=== PATIENT | female | born 1955 | race Asian ===

== ENCOUNTER 2018-03-16 16:17 | Emergency (ER) | payer OTHER, MEDICAID, SELFPAY ==
[2018-03-16 16:25] VITALS: BP 98/64; PULSE 87; RESP 16; TEMP 36.6; O2SAT 98; BMI 23.4
--- NOTE | 2018-03-16 19:10 | DI.RAD.S_ITS ---
PROCEDURE: XR SHOULDER RT MIN 2V INDICATIONS: Pain to right shoulder for last 4 days no trauma TECHNIQUE: 3 views of the shoulder were acquired. COMPARISON: None. FINDINGS: Bones: No fractures or dislocations. No suspicious bony lesions. Degenerative changes are present at the insertion of the rotator cuff. Visualized ribs appear intact. Soft tissues: No suspicious soft tissue calcifications. IMPRESSION: Degenerative change. No acute radiographic findings. If pain persists, repeat study in 5-7 days is recommended to exclude occult fracture. Dictated by: Tracey Watts M.D. on 03/16/2018 at 19:35 Approved by: Tracey Watts M.D. on 03/16/2018 at 19:35
--- NOTE | 2018-03-16 19:38 | ED_ITS ---
HPI - Extremity Injury (Upper) <CONSTANTIN Mckeon - Last Filed: 03/16/18 21:57> General Chief Complaint: Extremity Injury, Upper Stated Complaint: right hand and arm pain Time Seen by Provider: 03/16/18 17:32 Source: patient Mode of arrival: ambulatory Limitations: no limitations History of Present Illness HPI narrative: 62-year-old female with history of hypertension that is an everyday smoker here for complaint of pain into her right shoulder and to her right arm for the past 4 days. She denies any trauma to the area. She does state that she has her grandkids has been picking them up over the past several days. She also reports that she gets pain to her right thumb. She reports increased pain with motion of the right shoulder. She denies any other concerns or complaints at this timeframe. MD complaint: injury to: right and shoulder Related Data Previous Rx's Medication Instructions Recorded atorvastatin 40 mg PO HS #90 tab 02/20/17 hydrochlorothiazide 25 mg tablet 25 mg PO QDAY #90 tab 10/25/17 lisinopril 5 mg tablet 5 mg PO QDAY #90 tab 10/25/17 levothyroxine 75 mcg tablet 75 mcg PO QDAY #90 tab 01/01/18 Allergies Allergy/AdvReac Type Severity Reaction Status Date / Time Penicillins [PENICILLINS] Allergy Intermediate RASH Unverified 03/16/18 16:31 lactose [LACTOSE] AdvReac Intermediate GI UPSET Unverified 03/16/18 16:31 Review of Systems <CONSTANTIN Mckeon - Last Filed: 03/16/18 21:57> Constitutional Denies chills, Denies fever(s), Denies lethargy and Denies weakness Eyes Denies change in vision, Denies eye discharge, Denies irritation and Denies loss of vision ENT Ears, Nose, Mouth, and Throat: Denies change in voice, Denies neck pain and Denies sore throat Cardiovascular Denies chest pain, Denies irregular heart rhythm, Denies lightheadedness, Denies palpitations, Denies dyspnea, Denies dyspnea on exertion and Denies orthopnea Respiratory Denies cough, Denies dyspnea, Denies dyspnea on exertion and Denies wheezing Gastrointestinal Gastrointestinal: Denies abdominal pain, Denies change in bowel habits, Denies diarrhea, Denies nausea and Denies vomiting Genitourinary Denies hematuria, Denies flank pain, Denies urinary incontinence and Denies urinary urgency Musculoskeletal Denies neck pain Comments: Right shoulder pain right thumb pain Integumentary/Breasts Denies pruritus, Denies erythema, Denies rash and Denies wounds Neurologic Denies loss of vision and Denies weakness Endocrine Denies palpitations Hematologic/Lymphatic Denies easy bruising Allergic/Immunologic Denies wheezing Exam <CONSTANTIN Mckeon - Last Filed: 03/16/18 21:57> Initial Vital Signs Initial Vital Signs: Vital Signs Temperature 97.9 F 03/16/18 16:25 Pulse Rate 87 03/16/18 16:25 Respiratory Rate 16 03/16/18 16:25 Blood Pressure 98/64 03/16/18 16:25 Pulse Oximetry 98 03/16/18 16:25 Const General: cooperative and well developed Nutritional Appearance: well nourished Orientation: alert, awake, oriented x3 and not confused HENMT Mouth: oral mucosae normal and moist mucous membranes Eyes Conjunctivae: conjunctivae normal Sclera: sclerae normal Pupils: PERRL EOM: EOM intact bilaterally Resp Effort & Inspection: normal respiratory effort, able to speak in complete sentences, no respiratory distress and no use of accessory muscles Auscultation: clear to auscultation bilaterally, no rales, no rhonchi and no wheezes Cardio Rate: regular rate Rhythm: regular rhythm Heart Sounds: no click, no gallops, no murmurs and no rubs Pulses: normal peripheral pulses Skin General: no rashes or lesions noted, No jaundice and No petechiae Neuro General: alert, oriented x3, gait normal and no focal motor deficits Speech: speech normal Extrem Other: Right arm with no signs of trauma. Right shoulder no swelling no ecchymosis. Right thumb with no swelling no ecchymosis. Distal sensation is intact. Distal pulses are intact. Patient with full range of motion of the right arm. <Thony Hilton DO - Last Filed: 03/16/18 23:24> Initial Vital Signs Initial Vital Signs: Vital Signs Temperature 97.9 F 03/16/18 16:25 Pulse Rate 87 03/16/18 16:25 Respiratory Rate 16 03/16/18 16:25 Blood Pressure 98/64 03/16/18 16:25 Pulse Oximetry 98 03/16/18 16:25 Course <CONSTANTIN Mckeon - Last Filed: 03/16/18 21:57> Orders Ordered: ED Orders 03/16/18 19:10 XR shoulder RT min 2V Stat Vital Signs - 8 hr 03/16/18 16:25 03/16/18 19:56 Temperature 97.9 F Pulse Rate 87 69 Respiratory Rate 16 14 Blood Pressure 98/64 Blood Pressure [Left Arm] 111/63 Pulse Oximetry 98 98 <Thony Hilton DO - Last Filed: 03/16/18 23:24> Orders Ordered: ED Orders 03/16/18 19:10 XR shoulder RT min 2V Stat Vital Signs - 8 hr 03/16/18 16:25 03/16/18 19:56 Temperature 97.9 F Pulse Rate 87 69 Respiratory Rate 16 14 Blood Pressure 98/64 Blood Pressure [Left Arm] 111/63 Pulse Oximetry 98 98 MDM - Extremity Injury (Upper) <CONSTANTIN Mckeon - Last Filed: 03/16/18 21:57> Imaging Data Right shoulder : Radiologist's impression: [place] [address] XRay Report Signed Patient: Bala Alan MR#: [id number] : 1955 Acct:[id number] Age/Sex: 62 / F Date of Service: 03/16/18 Loc: ED Accession Number: [id number] Procedure: XR shoulder RT min 2V Ordering Provider: Lex Leggett PROCEDURE: XR SHOULDER RT MIN 2V INDICATIONS: Pain to right shoulder for last 4 days no trauma TECHNIQUE: 3 views of the shoulder were acquired. COMPARISON: None. FINDINGS: Bones: No fractures or dislocations. No suspicious bony lesions. Degenerative changes are present at the insertion of the rotator cuff. Visualized ribs appear intact. Soft tissues: No suspicious soft tissue calcifications. IMPRESSION: Degenerative change. No acute radiographic findings. If pain persists, repeat study in 5-7 days is recommended to exclude occult fracture. Dictated by: Tracey Watts M.D. on 03/16/2018 at 19:35 Approved by: Tracey Watts M.D. on 03/16/2018 at 19:35 [facility] Narrative Medical decision making narrative: X-ray of the right shoulder was obtained was negative for any acute findings. Signs symptoms presents as a strain into the right shoulder and right thumb area. [id number] Tylenol or Motrin as needed for any discomfort. Follow up with primary care provider later this week for re-evaluation. For any worsening symptoms return emergency room. Discharge Plan Departure Patient Disposition: Home Clinical Impression: Right shoulder strain Discharge Date/Time: 03/16/18 20:14 Interventions: ED Discharge Assessment Last Done: 03/16/18 20:13 Instructions: DI for Shoulder Pain Activity Restrictions/Additional Instructions: X-ray of the right shoulder was obtained was negative for any acute findings. Signs symptoms presents as a strain into the right shoulder and right thumb area. [id number] Tylenol or Motrin as needed for any discomfort. Follow up with primary care provider later this week for re-evaluation. For any worsening symptoms return emergency room. Prescriptions: No Action atorvastatin 40 MG tablet 40 mg PO HS Qty: 90 RF: 1 lisinopril 5 mg tablet 5 mg PO QDAY Qty: 90 RF: 1 hydrochlorothiazide 25 mg tablet 25 mg PO QDAY Qty: 90 RF: 1 levothyroxine [Synthroid] 75 mcg tablet 75 mcg PO QDAY Qty: 90 RF: 0 Referrals: Martha Barrios PA-C [Primary Care Provider] - <Thony Hilton DO - Last Filed: 03/16/18 23:24> Cosign ED Attending Sheree Attestation: I was immediately available in the department for consultation. Documentation has been reviewed. I agree with assessment and plan.
[2018-03-16 19:56] VITALS: BP 111/63; PULSE 69; RESP 14; O2SAT 98
== END 2018-03-16 20:14 | disposition home or self-care (01) ==
PROVIDERS: Emergency Provider Nurse Practitioner Family; Family Provider Physician Assistant; PCP Physician Assistant
DX: S46.911A Strain of unspecified muscle, fascia and tendon at shoulder and upper arm level, right arm, initial encounter (principal); T73.3XXA Exhaustion due to excessive exertion, initial encounter
CPT/HCPCS: 29125; 29260; 73030; 99283

== ENCOUNTER → 2018-04-06 13:39 | Outpatient (CLI) | payer OTHER, MEDICAID, SELFPAY ==
--- NOTE | 2018-04-06 13:42 | DI.RAD.S_ITS ---
PROCEDURE: XR CHEST 2V INDICATIONS: 62 y/o F smoker w/ cough x 1 month posterior R chest pain TECHNIQUE: 2 views of the chest were acquired. COMPARISON: 02/06/2011. FINDINGS: Surgical changes and devices: None. Metallic, radiopaque foreign body projects over the chin on the AP view and is outside the patient's body on the lateral view. This is artifactual. Lungs and pleura: No pleural effusions or pneumothorax. Lungs are clear. Mediastinum: Mediastinal contours are normal. Heart size is normal. Atherosclerotic calcifications of the aortic arch are present. Bones and chest wall: No suspicious bony abnormalities. Soft tissues appear unremarkable. IMPRESSION: Chest without acute cardiopulmonary abnormalities. Dictated by: You Drew M.D. on 04/06/2018 at 15:44 Approved by: You Drew M.D. on 04/06/2018 at 15:46
== END ==
PROVIDERS: Family Provider Physician Assistant; PCP Physician Assistant; Visit Provider Physician Assistant
DX: R05 Cough (principal); R07.9 Chest pain, unspecified; F17.200 Nicotine dependence, unspecified, uncomplicated
CPT/HCPCS: 71046

== ENCOUNTER → 2018-07-12 12:10 | Outpatient (CLI) | payer OTHER, MEDICAID, SELFPAY ==
--- NOTE | 2018-07-12 12:12 | DI.RAD.S_ITS ---
PROCEDURE: XR CHEST 2V INDICATIONS: Productive cough x3 weeks without improvement TECHNIQUE: 2 views of the chest were acquired. COMPARISON: [facility], CR, XR CHEST 2V, 04/06/2018, 14:19. FINDINGS: Surgical changes and devices: None. Lungs and pleura: No acute consolidation. Scattered subsegmental atelectasis and/or scarring. 9 mm ill-defined nodular opacity projecting in the left lung base. No pleural effusions or pneumothorax. Mediastinum: Mediastinal contours are normal. Heart size is normal. Bones and chest wall: No suspicious bony abnormalities. Soft tissues appear unremarkable. IMPRESSION: Subcentimeter ill-defined nodular opacity projecting in the left lung base potentially a small focus of bronchopneumonia however cannot exclude malignant/metastatic pulmonary nodule. Recommend followup with one-month interval chest radiograph after treatment and if this persists, further assessment with dedicated noncontrast chest CT. Dictated by: Manan Cadet M.D. on 07/12/2018 at 12:27 Approved by: Manan Cadet M.D. on 07/12/2018 at 12:31
== END ==
PROVIDERS: Family Provider Physician Assistant; PCP Physician Assistant; Visit Provider Registered Nurse
DX: R05 Cough (principal); R91.1 Solitary pulmonary nodule
CPT/HCPCS: 71046

== ENCOUNTER → 2018-08-02 09:40 | Outpatient (CLI) | payer OTHER, MEDICAID, SELFPAY ==
--- NOTE | 2018-08-02 09:43 | DI.RAD.S_ITS ---
PROCEDURE: XR CHEST 2V INDICATIONS: Test for cure of pneumonia TECHNIQUE: 2 views of the chest were acquired. COMPARISON: [facility], CR, XR CHEST 2V, 07/12/2018, 12:13. FINDINGS: Surgical changes and devices: None. Lungs and pleura: A similar irregular parenchymal opacity is present projecting adjacent to the left cardiac margin, likely in the lingula. No other consolidations or pleural effusions. Mediastinum: Mediastinal contours are normal. Heart size is normal. Bones and chest wall: No suspicious bony abnormalities. Soft tissues appear unremarkable. IMPRESSION: Irregular opacity in the lingula. Given adequate treatment of an infectious process, noncontrast chest CT for further evaluation of this lesion is recommended. Dictated by: Tammy Mendez M.D. on 08/02/2018 at 11:10 Approved by: Tammy Mendez M.D. on 08/02/2018 at 11:13
== END ==
PROVIDERS: Family Provider Physician Assistant; PCP Physician Assistant; Visit Provider Nurse Practitioner
DX: J18.9 Pneumonia, unspecified organism (principal); R06.2 Wheezing
CPT/HCPCS: 71046

== ENCOUNTER → 2018-08-09 10:17 | Outpatient (CLI) | payer OTHER, MEDICAID, SELFPAY ==
--- NOTE | 2018-08-09 11:04 | DI.CT.S_ITS ---
PROCEDURE: CT CHEST WO CON INDICATIONS: X-ray findings of questionable lung mass TECHNIQUE: Noncontrast 2.0-2.5 mm thick sections acquired from the pulmonary apices to the posterior costophrenic angles. 7 mm thick coronal and sagittal MIP reformats were then acquired. A low radiation dose technique was utilized. COMPARISON: [facility], CT, THORAX WITHOUT CONTRAST, 02/15/2011, 11:44. [facility], CR, CHEST 2 VIEW, 01/19/2011, 8:40. [facility], CR, CHEST 2 VIEW, 02/06/2011, 11:31. [facility], CR, XR CHEST 2V, 04/06/2018, 14:19. [facility], CR, XR CHEST 2V, 07/12/2018, 12:13. [facility], CR, XR CHEST 2V, 08/02/2018, 9:48. FINDINGS: Image quality: Diagnostic, given the low radiation dose technique. Lungs and pleura: The there has been a pattern of chronic lingular segment airspace disease in this patient with reference to prior plain film imaging from January 2011, and also with subsequent chest CT scanning 02/15/11 showing focal likely chronic lung disease at the lingular segment left upper lobe anteriorly. This same area has shown more recent airspace disease, and the current CT scanning shows a similar pattern to that previously present in February of 2011. A mass lesion or abnormal fluid collection has not developed. Mediastinum: Heart size is normal. No pericardial effusion. No mediastinal adenopathy by size criteria. Thoracic aorta and central pulmonary arteries are normal in size. Esophagus is normal in caliber. No hiatal hernia. Bones and chest wall: No suspicious bony lesions. No vertebral body compression fractures. No axillary or supraclavicular adenopathy by size criteria. Thyroid gland appears normal. Abdomen: Visualized upper abdomen solid organs and bowel loops appear normal in the absence of contrast. IMPRESSION: Patchy alveolar airspace disease involving the lingular segment left upper lobe with only a slight degree of progression with reference to the prior CT scanning from February of 2011. Appearance is most consistent with chronic lung disease, possibly chronic recurrent infection in that area, but no underlying mass lesion is seen. [employer] consultation likely is warranted, bronchial lavage to determine whether chronic low grade infection/granulomatous disease could be present in that area. Dictated by: Alexandro Matias M.D. on 08/09/2018 at 12:43 Approved by: Alexandro Matias M.D. on 08/09/2018 at 12:59
== END ==
PROVIDERS: Family Provider Physician Assistant; PCP Physician Assistant; Visit Provider Nurse Practitioner
DX: J98.4 Other disorders of lung (principal); R93.89 Abnormal findings on diagnostic imaging of other specified body structures
CPT/HCPCS: 71250

== ENCOUNTER → 2019-01-10 11:53 | Outpatient (CLI) | payer OTHER, MEDICAID, SELFPAY ==
[2019-01-13 10:59] LABS: Fecal Immunochemical Test NOT DETECTED (NOT DETECTED)
== END ==
PROVIDERS: PCP Physician Assistant; Visit Provider Physician Assistant
DX: Z12.11 Encounter for screening for malignant neoplasm of colon (principal)
CPT/HCPCS: 82274

== ENCOUNTER → 2019-03-07 10:33 | Outpatient (CLI) | payer OTHER, MEDICAID, SELFPAY ==
--- NOTE | 2019-03-17 08:34 | PM.PFT.1 ---
Pulmonary Function Test Referral & Results Date Patient Seen: 03/07/19 Requesting provider: Martha Barrios Results: The spirometry demonstrates an FVC of 2.37 L which is 84% of predicted. The FEV1 was measured at 1.35 L which is 62% of predicted. The FEV1/FVC ratio was 57 which is 73% of predicted. Following the administration of bronchodilator there was a 36% improvement in FEF 25-75%. Lung volumes show an SVC of 2.31 L which is 87% of predicted. The diffusing capacity was measured at 11.33 which is 60% of predicted. No hemoglobin value was provided, so no correction for potential anemia could be made, if appropriate. The maximum voluntary ventilation was severely reduced Interpretation: This study demonstrates moderate obstructive lung disease based on reduction FEV1 with limited evidence of benefit following bronchodilator which is most prominently seen in small airway flow based on improvement in FEF 25-75% as above There is minimal reduction in lung volumes suggesting minimal restrictive lung disease There is a more significant reduction in diffusing capacity suggesting moderate disease of the capillary alveolar level
== END ==
PROVIDERS: PCP Physician Assistant; Visit Provider Physician Assistant
DX: J98.8 Other specified respiratory disorders (principal); R05 Cough; F17.200 Nicotine dependence, unspecified, uncomplicated; Z87.891 Personal history of nicotine dependence
CPT/HCPCS: 94060; 94726; 94729

== ENCOUNTER → 2019-04-22 11:29 | Outpatient (CLI) | payer OTHER, MEDICAID, SELFPAY ==
--- NOTE | 2019-04-22 | DI.RAD.S_ITS ---
PROCEDURE: XR FOOT LT MIN 3V INDICATIONS: LEFT FOOT PAIN TECHNIQUE: 3 views of the foot were acquired. COMPARISON: None. FINDINGS: Bones: No fractures or dislocations. Possible subcortical lucency involving the head of the left great toe proximal phalanx. This may be related to artifact as it is only seen in one view. Otherwise, no other suspicious bony lesions. Small plantar calcaneal and retrocalcaneal enthesophyte. Soft tissues: No tibiotalar joint effusion. Achilles tendon appears normal. IMPRESSION: 1. Small plantar calcaneal and retrocalcaneal enthesophyte. 2. Possible small subcortical lucency involving the head of the left great toe proximal phalanx. This is only seen on one view and may be artifactual in etiology. Dictated by: You Drew M.D. on 04/22/2019 at 16:31 Approved by: You Drew M.D. on 04/22/2019 at 16:34
== END ==
PROVIDERS: PCP Physician Assistant; Referring Provider Physician Assistant; Visit Provider Physician Assistant
DX: M79.672 Pain in left foot (principal); M77.32 Calcaneal spur, left foot
CPT/HCPCS: 73630

== ENCOUNTER 2019-05-26 15:59 | Emergency (ER) | payer OTHER, MEDICAID, SELFPAY ==
[2019-05-26 16:09] VITALS: BP 115/68; PULSE 79; RESP 18; TEMP 37.2; O2SAT 98; BMI 24.4
--- NOTE | 2019-05-26 16:18 | DI.RAD.S_ITS ---
PROCEDURE: XR CHEST 2V INDICATIONS: cough/SOB TECHNIQUE: 2 views of the chest were acquired. COMPARISON: [facility], CR, XR CHEST 2V, 08/02/2018, 9:48. [facility], CR, XR CHEST 2V, 07/12/2018, 12:13. FINDINGS: Surgical changes and devices: None. Lungs and pleura: Lungs are clear. No pleural effusions or pneumothorax. Mediastinum: Mediastinal contours are normal. Heart size is normal. Bones and chest wall: No suspicious bony abnormalities. Soft tissues appear unremarkable. IMPRESSION: Relatively large lung volumes which may simply reflect an aggressive inspiratory effort. No pneumonia found. Dictated by: Alexandro Matias M.D. on 05/26/2019 at 16:51 Approved by: Alexandro Matias M.D. on 05/26/2019 at 16:52
[2019-05-26 16:54] LABS: Influenza A - CEPHEID Flu A NEGATIVE (NEGATIVE); Influenza B - CEPHEID Flu B NEGATIVE (NEGATIVE)
--- NOTE | 2019-05-26 18:58 | ED_ITS ---
HPI - URI/Sore Throat <CONSTANTIN Chakraborty - Last Filed: 05/26/19 21:02> General Chief Complaint: Upper Respiratory Symptoms Stated Complaint: Cough/SOB/No Fever Time Seen by Provider: 05/26/19 17:56 Mode of arrival: Ambulatory History of Present Illness HPI Narrative: 64-year-old female with a history of chronic emphysema presents to the emergency department for continued cough over the past 2 months. She states she has been taking Tessalon Perles which has helped foot is interested in trying an inhaler to help with symptoms. She states her cough is dry, she denies any worsening symptoms such as fever, shortness of breath, chest pain, nausea, vomiting, diarrhea, or any other concerns. She denies any exposure to persons with COVID-19 infection Related Data Previous Rx's Medication Instructions Recorded levothyroxine 88 mcg tablet 88 mcg PO DAILY #90 tab 07/15/18 hydrochlorothiazide 25 mg tablet 25 mg PO QDAY #90 tab 12/27/18 varenicline 0.5 mg (11)-1 mg (42) See Rx Instructions PO PER PKG DIR 01/01/19 tablets in a dose pack #53 each atorvastatin 40 mg tablet 40 mg PO HS #90 tab 04/22/19 azithromycin 250 mg tablet See Rx Instructions PO .COMPLEX #6 04/22/19 tab codeine 10 mg-guaifenesin 200 mg/5 5 ml PO BEDTIME #200 ml 04/22/19 mL oral liquid hydroxyzine pamoate 25 mg capsule See Rx Instructions PO BEDTIME PRN 04/22/19 #60 cap lisinopril 5 mg tablet 5 mg PO QDAY #90 tab 04/22/19 varenicline 0.5 mg tablet 1 mg PO BID #60 tab 04/22/19 albuterol sulfate 2 puff INHALATION Q4-6H PRN #8.5 05/26/19 gram benzonatate [Tessalon Perles] 100 mg PO BID-TID PRN #20 cap 05/26/19 Allergies Allergy/AdvReac Type Severity Reaction Status Date / Time Penicillins [PENICILLINS] Allergy Intermediate RASH Verified 05/26/19 16:13 lactose [LACTOSE] AdvReac Intermediate GI UPSET Verified 05/26/19 16:13 Review of Systems <CONSTANTIN Chakraborty - Last Filed: 05/26/19 21:02> Review of Systems Narrative: REVIEW OF SYSTEMS: GENERAL: Denies fevers. HENT: No head trauma or hearing loss. EYES: No loss of vision, double vision, eye pain, irritation or discharge. CARDIOVASCULAR: No chest pain or syncope. RESPIRATORY: No shortness of breath. Reports cough, see HPI. GASTROINTESTINAL: No nausea, vomiting, diarrhea, or constipation. MUSCULOSKELETAL: No weakness or injury. INTEGUMENTARY: No rash, lesions, or pruritus. NEURO: No memory loss, or confusion. Patient History <CONSTANTIN Chakraborty - Last Filed: 05/26/19 21:02> Medical History Depression (Chronic Unknown) GERD (gastroesophageal reflux disease) (Chronic ~2011) Hyperlipemia (Chronic Unknown) Hypertension (Chronic Unknown) Hypothyroidism (Chronic Unknown) Surgical History Hx of breast surgery (Resolved Unknown) Social History Smoking Status: Current every day smoker Tobacco: How many years used: 35 second hand exposure: Yes alcohol intake: never substance use type: does not use Smoking Status: Current every day smoker alcohol intake frequency: holidays/special occasions only Substance Use Type: does not use Exam <CONSTANTIN Chakraborty - Last Filed: 05/26/19 21:02> Initial Vital Signs Initial Vital Signs: Vital Signs Temperature 99.0 F 05/26/19 16:09 Pulse Rate 79 05/26/19 16:09 Respiratory Rate 18 05/26/19 16:09 Blood Pressure 115/68 05/26/19 16:09 Pulse Oximetry 98 05/26/19 16:09 PHYSICAL EXAMINATION: GENERAL: Well groomed, alert, and cooperative. Answers questions promptly and appropriately. Vital signs noted. HENT: Normocephalic, atraumatic. Ear canals patent. Oropharynx without erythema. Tonsils are not present. EYES: Conjunctiva pink, sclera white, no periorbital swelling. No discharge. CHEST: Normal to inspection and without deformities. CARDIOVASCULAR: S1 and S2 sounds normal. Regular rate and rhythm, no murmurs, clicks, or bruits. RESPIRATORY: Normal respiratory rate, trachea midline, airway patent. No s tridor, nasal flaring or accessory muscle use. Able to speak in full sentences. Lungs occasional expiratory wheeze heard, no crackles or rhonchi. Dry cough heard throughout examination. MUSCULOSKELETAL: Normal gait and coordination. Equal tone and mass bilaterally. EXTREMITIES: Moves all extremities. SKIN: Warm, dry, soft, appropriate color for ethnicity. No lesions, rashes, or wounds to visualized areas. NEURO: Alert and Oriented X 3. Good coordination. No ataxia or cognitive issues. PSYCH: Appropriate affect and mood. <Todd Christian DO - Last Filed: 05/26/19 23:20> Initial Vital Signs Initial Vital Signs: Vital Signs Temperature 99.0 F 05/26/19 16:09 Pulse Rate 79 05/26/19 16:09 Respiratory Rate 18 05/26/19 16:09 Blood Pressure 115/68 05/26/19 16:09 Pulse Oximetry 98 05/26/19 16:09 Course <CONSTANTIN Chakraborty - Last Filed: 05/26/19 21:02> Course Course Narrative: Respiratory was called to teach patient had to use a spacer. Orders Ordered: ED Orders 05/26/19 16:15 Influenza A & B (PCR) Stat 05/26/19 16:18 Chest [XR chest 2V] Stat Vital Signs Vital signs: Vital Signs - 8 hr 05/26/19 16:09 Temperature 99.0 F Pulse Rate 79 Respiratory Rate 18 Blood Pressure 115/68 Pulse Oximetry 98 <Todd Christian DO - Last Filed: 05/26/19 23:20> Orders Ordered: ED Orders 05/26/19 16:15 Influenza A & B (PCR) Stat 05/26/19 16:18 Chest [XR chest 2V] Stat Vital Signs Vital signs: Vital Signs - 8 hr 05/26/19 16:09 Temperature 99.0 F Pulse Rate 79 Respiratory Rate 18 Blood Pressure 115/68 Pulse Oximetry 98 MDM - URI/Sore Throat <CONSTANTIN Chakraborty - Last Filed: 05/26/19 21:02> Medical Records Attestation: I reviewed the patient's medical records. Lab Data Attestation: I reviewed the patient's lab results. Labs: Lab Results 05/26/19 Range/Units 16:15 Influenza A (RT-PCR) Flu a negative (NEGATIVE) Influenza B (RT-PCR) Flu b negative (NEGATIVE) Imaging Data Chest x-ray: Radiologist's Impression: [address] [place] [id number] XRay Report Signed Patient: Bala Alan#: [id number] : 8Acct:[id number] Age/Sex: 64 / FDate of Service: 05/26/19 Loc: ED Accession Number: [id number] Procedure: XR chest 2V Ordering Provider: Natasha Lundberg MD PROCEDURE: XR CHEST 2V INDICATIONS: cough/SOB TECHNIQUE: 2 views of the chest were acquired. COMPARISON: [facility], CR, XR CHEST 2V, 08/02/2018, 9:48. [facility], CR, XR CHEST 2V, 07/12/2018, 12:13. FINDINGS: Surgical changes and devices: None. Lungs and pleura: Lungs are clear. No pleural effusions or pneumothorax. Mediastinum: Mediastinal contours are normal. Heart size is normal. Bones and chest wall: No suspicious bony abnormalities. Soft tissues appear unremarkable. IMPRESSION: Relatively large lung volumes which may simply reflect an aggressive inspiratory effort. No pneumonia found. Dictated by: Alexandro Matias M.D. on 05/26/2019 at 16:51 Approved by: Alexandro Matias M.D. on 05/26/2019 at 16:52 MDM Narrative Medical decision making narrative: 64-year-old female presents emergency department for continued cough for the past 2 months. Chest x-rays negative for any infectious signs such as pneumonia, influenza swab is negative. Is most likely caused by chronic emphysema as she states she has this cough is very similar to her chronic emphysema cough. She states is usually controlled by Tessalon Perles but would like to try an inhaler to see if her cough full resolved. Patient's temp was slightly elevated but does not complain of fevers at home I do not feel that she needs to be tested for COVID-19 at this time due to lack of other symptoms. Less concerns for other etiologies such as cardiac or pulmonary etiology due to lack of symptoms such as chest pain and shortness of breath. Patient was given strict ED return precautions for new or worsening symptoms she. Patient was encouraged to follow up with her primary care provider in 2 weeks for further evaluation and management of her chronic of his e-mail. She agrees to plan of care verbalized understanding. <Todd Christian, DO - Last Filed: 05/26/19 23:20> Lab Data Labs: Lab Results 05/26/19 Range/Units 16:15 Influenza A (RT-PCR) Flu a negative (NEGATIVE) Influenza B (RT-PCR) Flu b negative (NEGATIVE) Discharge Plan Departure Patient Disposition: Home Clinical Impression: Chronic emphysema syndrome Discharge Date/Time: 05/26/19 19:23 Instructions: DI for Cough-Child Activity Restrictions/Additional Instructions: Thank you for entrusting me with your care today. As discussed, your chest x- rays negative, you are also negative for influenza. Due to your chronic emphysema that has not improved, I have prescribed you an inhaler. This inhaler can make you shaking, dizzy, and jittery after you take it. Please use it with a spacer. You can use 2 puffs every 4-6 hours as needed for extensive coughing and shortness of breath. Please rinse your mouth out after using her inhaler. I have also prescribed you Tessalon Perles. Follow up with her primary care provider in 1-2 weeks for further evaluation. Return emergency department for any new or worsening symptoms such as significant shortness of breath, chest pain, syncope, or any other concerns. Prescriptions were sent to [facility] pharmacy in [place]. Prescriptions: New albuterol sulfate 90 mcg/actuation HFA aerosol inhaler 2 puff INHALATION Q4-6H PRN (Reason: shortness of breath or wheezing) Qty: 8.5 RF: 0 benzonatate [Tessalon Perles] 100 mg capsule 100 mg PO BID-TID PRN (Reason: cough) Qty: 20 RF: 0 No Action levothyroxine 88 mcg tablet 88 mcg PO DAILY Qty: 90 RF: 3 hydrochlorothiazide 25 mg tablet 25 mg PO QDAY Qty: 90 RF: 1 varenicline 0.5 mg (11)- 1 mg (42) tablets,dose pack See Rx Instructions PO PER PKG DIR Qty: 53 RF: 0 hydroxyzine pamoate 25 mg capsule See Rx Instructions PO BEDTIME PRN (Reason: inomnia and anxiety) Qty: 60 RF: 3 varenicline 0.5 mg tablet 1 mg PO BID Qty: 60 RF: 6 atorvastatin 40 mg tablet 40 mg PO HS Qty: 90 RF: 1 lisinopril 5 mg tablet 5 mg PO QDAY Qty: 90 RF: 1 codeine-guaifenesin 10-200 mg/5 mL liquid 5 ml PO BEDTIME Qty: 200 RF: 0 azithromycin 250 mg tablet See Rx Instructions PO .COMPLEX Qty: 6 RF: 0 Referrals: Martha Barrios PA-C [Primary Care Provider] - <Todd Christian DO - Last Filed: 05/26/19 23:20> Sign Out Provider Sign Out Attestation: Dr Christian Co-Sign Statement: I was available for consultation during this patient's emergency department visit. This chart is signed by myself for administrative purposes only. I did not have direct contact with this patient during this visit. They were seen independently by the APC.
== END 2019-05-26 19:23 | disposition home or self-care (01) ==
PROVIDERS: Emergency Medicine; Emergency Provider Nurse Practitioner; PCP Physician Assistant
DX: J43.8 Other emphysema (principal); Z72.0 Tobacco use
CPT/HCPCS: 71046; 87502; 99283

== ENCOUNTER → 2019-10-16 16:08 | Outpatient (CLI) | payer OTHER, MEDICAID, SELFPAY ==
--- NOTE | 2019-10-16 16:10 | DI.RAD.S_ITS ---
PROCEDURE: XR SHOULDER RT MIN 2V INDICATIONS: right shoulder pain TECHNIQUE: 3 views of the shoulder were acquired. COMPARISON: [facility], CR, XR SHOULDER RT MIN 2V, 03/16/2018, 19:15. FINDINGS: Bones: No fractures or dislocations. No suspicious bony lesions. Visualized ribs appear intact. Mild joint narrowing with periarticular osteophyte formation. Prominent spurring again visualized at the insertion site of the rotator cuff. Soft tissues: No suspicious soft tissue calcifications. IMPRESSION: 1. Mild acromioclavicular and glenohumeral joint degeneration. 2. Prominent bone spurring again seen at the insertion site of the rotator cuff. Dictated by: Brett Torres [facility] Interpreted: Benjamin Maldonado MD on 10/16/2019 at 16:36 Approved by: Benjamin Maldonado M.D. on 10/16/2019 at 17:08
== END ==
PROVIDERS: PCP Nurse Practitioner Family; Referring Provider Nurse Practitioner Family; Visit Provider Nurse Practitioner Family
DX: M19.011 Primary osteoarthritis, right shoulder (principal); M25.511 Pain in right shoulder
CPT/HCPCS: 73030

== ENCOUNTER → 2019-12-09 10:54 | Outpatient (CLI) | payer OTHER, MEDICAID, SELFPAY ==
[2019-12-09 11:25] LABS: Hematocrit 42.4 % (36-46); Mean Corpuscular Hemoglobin 31.8 PG (26-34); Mean Corpuscular Volume 96.4 fL (80-100); Platelet Count 165 X10^3/uL (150-400); Red Cell Distribution Width 13.2 % (11.6-14.8); White Blood Cell Count 5.2 X10^3/uL (4.5-11.0)
[2019-12-09 13:21] LABS: Alanine Aminotransferase 16 IU/L (<35); Albumin 4.2 g/dL (3.5-5.0); Albumin Globulin Ratio 1.3 (1.0-2.8); Alkaline Phosphatase 87 U/L (38-126); Aspartate Aminotransferase 25 IU/L (14-36); BUN Creatinine Ratio 24.1 (6-22); Bilirubin Total 0.6 mg/dL (0.2-1.3); Blood Urea Nitrogen 20 mg/dL (7-17); Calcium 9.6 mg/dL (8.4-10.2); Carbon Dioxide 31 mmol/L (22-32); Chloride 106 mmol/L (98-107); Cholesterol 254 mg/dL (140-199); Estimated Glomerular Filt Rate > 60.0 mL/min (>60); Globulin 3.2 g/dL (1.7-4.1); Glucose 96 mg/dL (80-110); HDL Cholesterol 45 mg/dL (40-60); HEMOLYSIS < 15 (0-50); LDL Cholesterol Calculated 168 mg/dL (<100); Potassium 5.1 mmol/L (3.4-5.1); Sodium 141 mmol/L (137-145); Total Protein 7.4 g/dL (6.3-8.2); Triglycerides 206 mg/dL (35-150)
[2019-12-09 14:02] LABS: Thyroid Stimulating Hormone 2.96 uIU/mL (0.47-4.68)
[2019-12-09 14:21] LABS: Vitamin B12 353 pg/mL (239-931)
[2019-12-09 14:40] LABS: Creatinine Urine Random 17.9 mg/dL
[2019-12-09 14:52] LABS: Microalbumin Urine Random < 0.6 mg/dL (0-1.6)
== END ==
PROVIDERS: PCP Nurse Practitioner Family; Referring Provider Nurse Practitioner Family; Visit Provider Nurse Practitioner Family
DX: Z00.00 Encounter for general adult medical examination without abnormal findings (principal); E03.9 Hypothyroidism, unspecified; I10 Essential (primary) hypertension; R53.83 Other fatigue; E78.00 Pure hypercholesterolemia, unspecified
CPT/HCPCS: 36415; 80053; 80061; 82043; 82570; 82607; 82746; 84443; 85027

== ENCOUNTER → 2020-02-18 10:55 | Outpatient (CLI) | payer OTHER, MEDICAID, SELFPAY | PROVIDERS: PCP Nurse Practitioner Family; Visit Provider Nurse Practitioner Family | DX: N64.4 Mastodynia (principal); N64.52 Nipple discharge | CPT/HCPCS: 87070; 87077; 87185; 87186; 87205 ==

== ENCOUNTER → 2021-03-16 10:12 | Outpatient (CLI) | payer OTHER, MEDICAID, SELFPAY | PROVIDERS: PCP Nurse Practitioner Family; Visit Provider Registered Nurse Diabetes Educator | DX: N61.1 Abscess of the breast and nipple (principal) | CPT/HCPCS: 87070; 87075; 87205 ==

== ENCOUNTER → 2021-03-16 12:30 | Outpatient (CLI) | payer OTHER, MEDICAID, SELFPAY ==
--- NOTE | 2021-03-16 12:32 | DI.US.S_ITS ---
ULTRASOUND OF LEFT BREAST: 03/16/2021 CLINICAL: Focal left breast pain. Comparison is made to exams dated: 09/06/2020 mammogram, 02/27/2020 ultrasound, 02/27/2020 mammogram - [facility], 12/19/2013 mammogram, 02/23/2011 mammogram, and 02/10/2011 mammogram - [facility]. Color flow and real-time ultrasound of the left breast were performed. Garner scale images of the real-time examination were reviewed. No sonographic findings for abscess in the areas of clinical concern in the left breast 7:00 and retroareolar region. No focal mass or skin abnormalities. IMPRESSION: INCOMPLETE: NEEDS ADDITIONAL IMAGING EVALUATION No sonographic evidence for abscess in the areas of clinical concern in the retroareolar region and the 7 o'clock axis. Imaging evaluation is incomplete. The patient is not able to stay for mammographic evaluation and will return at a later time. Patient is scheduled to see her surgeon immediately following this examination. This exam was interpreted at Station ID: [id number]. Electronically Signed By: You Drew M.D. aty/:03/16/2021 13:14:58 Ultrasound BI-RADS: 0 Indeterminate
== END ==
PROVIDERS: PCP Nurse Practitioner Family; Referring Provider Registered Nurse Diabetes Educator; Visit Provider Registered Nurse Diabetes Educator
DX: R92.2 Inconclusive mammogram (principal); N61.1 Abscess of the breast and nipple; N64.4 Mastodynia
CPT/HCPCS: 76642; 87070; 87075; 87077; 87185; 87186; 87205

== ENCOUNTER 2021-04-30 14:24 | Emergency (ER) | payer OTHER, MEDICAID, SELFPAY ==
[2021-04-30 14:29] VITALS: BP 179/79; PULSE 82; RESP 16; TEMP 36.6; O2SAT 99; BMI 26.4
[2021-04-30 15:07] LABS: COVID19 -Nasal RAPID Negative (Negative)
[2021-04-30 17:22] VITALS: BP 146/67; PULSE 67; RESP 18; TEMP 36.7; O2SAT 98
--- NOTE | 2021-04-30 18:16 | ED_ITS ---
HPI - Headache <CONSTANTIN Butt - Last Filed: 04/30/21 20:16> General Chief Complaint: Headache Stated Complaint: Headache for 3 Days Time Seen by Provider: 04/30/21 17:51 History of Present Illness HPI Narrative: 65-year-old female unvaccinated for COVID who presents to the emergency department with headache for 3 days with photophobia. Patient denies a history of migraines, she denies any fever, she has a mild cough and sore throat. Patient states that she had a COVID test today and it was negative. Patient has a history of hypertension, daily medications include lisinopril, rosuvastatin, levothyroxine, hydrochlorothiazide. Patient denies any trauma, denies any vision changes other than photophobia, denies any nausea, vomiting, diarrhea. Patient denies any recent fever or shortness of breath, chest pain, difficulty breathing, or other. Related Data Previous Rx's Medication Instructions Recorded albuterol sulfate 90 mcg/actuation 2 puff INHALATION Q4-6H PRN #8.5 05/26/19 aerosol inhaler gram hydrochlorothiazide 25 mg tablet 25 mg PO QDAY #90 tab 08/12/20 levothyroxine 88 mcg tablet 88 mcg PO DAILY #90 tab 08/12/20 lisinopril 5 mg tablet 5 mg PO QDAY #90 tab 08/12/20 rosuvastatin 20 mg tablet 20 mg PO DAILY #90 tab 08/12/20 varenicline 0.5 mg (11)-1 mg (42) See Rx Instructions PO PER PKG DIR 08/12/20 tablets in a dose pack #53 ea doxycycline monohydrate 100 mg 100 mg PO BID #20 cap 03/16/21 capsule Allergies Allergy/AdvReac Type Severity Reaction Status Date / Time Penicillins [PENICILLINS] Allergy Intermediate RASH Verified 03/31/21 10:32 lactose [LACTOSE] AdvReac Intermediate GI UPSET Verified 03/31/21 10:32 Review of Systems <CONSTANTIN Butt - Last Filed: 04/30/21 20:16> Review of Systems Narrative: General: denies fever, chills, malaise, sweats, fatigue Head/Neck: Endorses headache, denies neck pain, dizziness, endorses sore throat and congestion Eyes: denies visual changes, eye pain Cardio: denies chest pain, palpitations, edema Respiratory: denies dyspnea, cough, orthopnea GI: denies abdominal pain, nausea, vomiting, or diarrhea : denies dysuria, hematuria, urinary retention, frequency or incontinence MSK: denies joint pain, muscle weakness Skin: denies rash, itching, skin lesions or other Neuro: denies numbness, tingling Patient History <CONSTANTIN Butt - Last Filed: 04/30/21 20:16> Medical History Arthropathy of right shoulder Breast pain, left Current smoker Depression (Unknown) Emphysema lung Encounter for smoking cessation counseling Fatigue (07/2019) GERD (gastroesophageal reflux disease) (~2011) Hyperlipemia (Unknown) Hypertension (Unknown) Hypothyroidism (Unknown) Menopause Nipple discharge in female (02/2020) Surgical History Hx of breast surgery (Unknown) Family History Father Hypertension Diabetes mellitus Social History Smoking Status: Current every day smoker Tobacco: How many years used: 35 second hand exposure: Yes alcohol intake: never substance use type: does not use Smoking Status: Current every day smoker alcohol intake frequency: holidays/special occasions only Substance Use Type: does not use Exam <CONSTANTIN Butt - Last Filed: 04/30/21 20:16> Narrative Exam Narrative: Independently reviewed vitals signs and nursing notes. General: Cooperative, comfortable, in no acute distress, well developed and well groomed Head/Neck: Normal visual inspection and supple, atraumatic, no JVD or lymphadenopathy. Normal facial exam Eyes: Pupils equal round and reactive, EOMI, conjunctiva normal, no scleral icterus or injections, no nystagmus Nose: External nose normal, nares patent, no rhinorrhea, without purulent drainage Mouth/Throat: uvula midline, moist mucus membranes Cardio: Regular rate and rhythm, no peripheral edema, warm extremities Respiratory: Normal respiratory effort, able to speak in complete sentences without audible wheezing, stridor, or rales. No retractions. GI: Abdomen soft, nontender to palpation x4 quadrants, nondistended, no masses or exquisite tenderness with exam, no flank tenderness MSK: Moves all extremities, neurovascularly intact, no weakness, extremities are 5/5 strength x4. Skin: Normal capillary refill, no rash Neuro: Normal speech and cognition, normal gait, A&O x3, tone normal, moves all extremities, no focal neuro deficits Psych: Mental status is grossly normal, speech is clear, congruent mood, normal affect Initial Vital Signs Initial Vital Signs: Vital Signs Temperature 97.8 F 04/30/21 14:29 Pulse Rate 82 04/30/21 14:29 Respiratory Rate 16 04/30/21 14:29 Blood Pressure 179/79 H 04/30/21 14:29 Pulse Oximetry 99 04/30/21 14:29 <Nat Taylor DO - Last Filed: 05/01/21 09:07> Initial Vital Signs Initial Vital Signs: Vital Signs Temperature 97.8 F 04/30/21 14:29 Pulse Rate 82 04/30/21 14:29 Respiratory Rate 16 04/30/21 14:29 Blood Pressure 179/79 H 04/30/21 14:29 Pulse Oximetry 99 04/30/21 14:29 Course <CONSTANTIN Butt - Last Filed: 04/30/21 20:16> Orders Ordered: Discontinued Medications Acetaminophen (Acetaminophen 325 Mg Tablet) 975 mg PO NOW ONE Stop: 04/30/21 19:13 Last Admin: 04/30/21 19:34 Dose: 975 mg Documented by: RADHA Diphenhydramine HCl (Diphenhydramine 50 Mg/Ml Vial) 25 mg IV NOW ONE Stop: 04/30/21 18:09 Last Admin: 04/30/21 18:37 Dose: 25 mg Documented by: RADHA Hydromorphone HCl (Hydromorphone 0.5 Mg Inj) 0.5 mg IV NOW ONE Stop: 04/30/21 19:13 Sodium Chloride (Normal Saline 0.9%) 1,000 mls @ 1,000 mls/hr IV BOLUS ONE Stop: 04/30/21 19:07 Last Infusion: 04/30/21 19:39 Dose: 0 mls/hr Documented by: Admin: 04/30/21 18:37 Dose: 1,000 mls/hr Documented by: RADHA Ketorolac Tromethamine (Ketorolac 30 Mg/Ml Vial) 15 mg IV NOW ONE Stop: 04/30/21 18:14 Last Admin: 04/30/21 18:38 Dose: 15 mg Documented by: RADHA Metoclopramide HCl (Metoclopramide 10 Mg/2 Ml Inj) 10 mg IV NOW ONE Stop: 04/30/21 18:09 Oxycodone HCl (Oxycodone Ir 5 Mg Tablet) 5 mg PO NOW ONE Stop: 04/30/21 19:31 Last Admin: 04/30/21 19:34 Dose: 5 mg Documented by: RADHA Prochlorperazine (Prochlorperazine 10 Mg/2 Ml Vial) 10 mg IV NOW ONE Stop: 04/30/21 18:18 Last Admin: 04/30/21 18:37 Dose: 10 mg Documented by: RADHA Vital Signs Vital signs: Vital Signs - 8 hr 04/30/21 14:29 04/30/21 17:22 04/30/21 18:37 Temperature 97.8 F 98.1 F Pulse Rate 82 67 72 Respiratory Rate 16 18 Blood Pressure 179/79 H 146/67 H 105/52 L Pulse Oximetry 99 98 04/30/21 19:47 Temperature Pulse Rate 67 Respiratory Rate 12 Blood Pressure 96/69 Pulse Oximetry 98 <Nat Taylor DO - Last Filed: 05/01/21 09:07> Orders Ordered: Discontinued Medications Acetaminophen (Acetaminophen 325 Mg Tablet) 975 mg PO NOW ONE Stop: 04/30/21 19:13 Last Admin: 04/30/21 19:34 Dose: 975 mg Documented by: RADHA Diphenhydramine HCl (Diphenhydramine 50 Mg/Ml Vial) 25 mg IV NOW ONE Stop: 04/30/21 18:09 Last Admin: 04/30/21 18:37 Dose: 25 mg Documented by: RADHA Hydromorphone HCl (Hydromorphone 0.5 Mg Inj) 0.5 mg IV NOW ONE Stop: 04/30/21 19:13 Sodium Chloride (Normal Saline 0.9%) 1,000 mls @ 1,000 mls/hr IV BOLUS ONE Stop: 04/30/21 19:07 Last Infusion: 04/30/21 19:39 Dose: 0 mls/hr Documented by: Admin: 04/30/21 18:37 Dose: 1,000 mls/hr Documented by: RADHA Ketorolac Tromethamine (Ketorolac 30 Mg/Ml Vial) 15 mg IV NOW ONE Stop: 04/30/21 18:14 Last Admin: 04/30/21 18:38 Dose: 15 mg Documented by: RADHA Metoclopramide HCl (Metoclopramide 10 Mg/2 Ml Inj) 10 mg IV NOW ONE Stop: 04/30/21 18:09 Oxycodone HCl (Oxycodone Ir 5 Mg Tablet) 5 mg PO NOW ONE Stop: 04/30/21 19:31 Last Admin: 04/30/21 19:34 Dose: 5 mg Documented by: RADHA Prochlorperazine (Prochlorperazine 10 Mg/2 Ml Vial) 10 mg IV NOW ONE Stop: 04/30/21 18:18 Last Admin: 04/30/21 18:37 Dose: 10 mg Documented by: RADHA Vital Signs Vital signs: Vital Signs - 8 hr 04/30/21 14:29 04/30/21 17:22 04/30/21 18:37 Temperature 97.8 F 98.1 F Pulse Rate 82 67 72 Respiratory Rate 16 18 Blood Pressure 179/79 H 146/67 H 105/52 L Pulse Oximetry 99 98 04/30/21 19:47 Temperature Pulse Rate 67 Respiratory Rate 12 Blood Pressure 96/69 Pulse Oximetry 98 MDM - Headache <CONSTANTIN Butt - Last Filed: 04/30/21 20:16> Lab Data Result diagrams: 04/30/21 17:27 04/30/21 17:27 Labs: Lab Results 04/30/21 04/30/21 04/30/21 Range/Units 14:34 17:27 17:27 WBC 5.5 (4.5-11.0) X10^3/uL RBC 4.61 (4.0-5.2) X10^6/uL Hgb 14.9 (12.0-16.0) g/dL Hct 43.0 (36-46) % MCV 93.4 (80-100) fL MCH 32.4 (26-34) PG MCHC 34.6 (30-36) % RDW 12.9 (11.6-14.8) % Plt Count 172 (150-400) X10^3/uL Neut % (Auto) 47.4 L (50-75) % Lymph % (Auto) 42.7 H (25-40) % [place] % (Auto) 6.0 (3-14) % Eos % (Auto) 3.2 (2-4) % Baso % (Auto) 0.7 (0-2) % Neut # (Auto) 2600 (4070-4341) /uL Lymph # (Auto) 2400 (5764-3617) /uL [place] # (Auto) 300 (0-900) /uL Eos # (Auto) 200 (0-450) /uL Baso # (Auto) 0 (0-100) /uL Sodium 138 (137-145) mmol/L Potassium 4.0 (3.4-5.1) mmol/L Chloride 103 (98-107) mmol/L Carbon Dioxide 29 (22-32) mmol/L BUN 12 (7-17) mg/dL Creatinine 0.65 (0.52-1.04) mg/dL Estimated GFR > 60.0 (>60) mL/min BUN/Creatinine Ratio 18.5 (6-22) Glucose 101 (80-110) mg/dL Calcium 9.6 (8.4-10.2) mg/dL Total Bilirubin 0.6 (0.2-1.3) mg/dL AST 28 (14-36) IU/L ALT 16 (<35) IU/L Alkaline Phosphatase 75 (38-126) U/L Total Protein 8.4 H (6.3-8.2) g/dL Albumin 4.6 (3.5-5.0) g/dL Globulin 3.8 (1.7-4.1) g/dL Albumin/Globulin Ratio 1.2 (1.0-2.8) SARS-CoV-2 (PCR) Negative (Negative) MDM Narrative Medical decision making narrative: 65-year-old female with history of hypertension and hyperlipidemia, type 2 diabetes, hypothyroidism and is a current everyday smoker who presents to the emergency department with headache x3 days with sore throat and congestion. Patient is unvaccinated for COVID, home COVID test today was negative, hospital COVID PCR today is also negative. For her headache she was given 1 L of normal saline, Compazine, Toradol, and Benadryl with mild relief of her symptoms to a pain level of 6/10. She was then given oxycodone and Tylenol with better relief of her symptoms 10 to a 4/[address] head not completed due to lack of trauma with no focal neuro deficit, no vision changes, no mental status changes, no neck pain. Headache considerations include, but not limited to: Subarachnoid hemorrhage, but unlikely as patient denies sudden onset of pain, not worst of life, or neck pain Meningitis considered, but thought unlikely given lack of Brudzinski's, Kernig's sign, altered mental status or fever Giant cell arteritis considered, but thought unlikely given lack of unilateral findings, pain in moravian, vision change HTN Emergency considered, but thought unlikely given normal vitals Other serious diagnoses considered unlikely given lack of red flag findings such as sudden onset, increasing frequency, immunocompromise, systemic signs (fever, chills, stiff neck, or rash), focal neurologic findings, trauma, blood thinners, etc. Patient is appropriate and amenable to discharge home. Vital signs are stable on repeat examination is unremarkable. Patient has been informed of results. Patient has been given strict return to ER precautions for any new or worsening symptoms. Patient understands to follow up closely with outpatient providers as instructed. Patient understands plan and agrees to discharge home. All questions and concerns answered at this time. <Nat Taylor, DO - Last Filed: 05/01/21 09:07> Lab Data Labs: Lab Results 04/30/21 04/30/21 04/30/21 Range/Units 14:34 17:27 17:27 WBC 5.5 (4.5-11.0) X10^3/uL RBC 4.61 (4.0-5.2) X10^6/uL Hgb 14.9 (12.0-16.0) g/dL Hct 43.0 (36-46) % MCV 93.4 (80-100) fL MCH 32.4 (26-34) PG MCHC 34.6 (30-36) % RDW 12.9 (11.6-14.8) % Plt Count 172 (150-400) X10^3/uL Neut % (Auto) 47.4 L (50-75) % Lymph % (Auto) 42.7 H (25-40) % [place] % (Auto) 6.0 (3-14) % Eos % (Auto) 3.2 (2-4) % Baso % (Auto) 0.7 (0-2) % Neut # (Auto) 2600 (2171-5592) /uL Lymph # (Auto) 2400 (8823-3955) /uL [place] # (Auto) 300 (0-900) /uL Eos # (Auto) 200 (0-450) /uL Baso # (Auto) 0 (0-100) /uL Sodium 138 (137-145) mmol/L Potassium 4.0 (3.4-5.1) mmol/L Chloride 103 (98-107) mmol/L Carbon Dioxide 29 (22-32) mmol/L BUN 12 (7-17) mg/dL Creatinine 0.65 (0.52-1.04) mg/dL Estimated GFR > 60.0 (>60) mL/min BUN/Creatinine Ratio 18.5 (6-22) Glucose 101 (80-110) mg/dL Calcium 9.6 (8.4-10.2) mg/dL Total Bilirubin 0.6 (0.2-1.3) mg/dL AST 28 (14-36) IU/L ALT 16 (<35) IU/L Alkaline Phosphatase 75 (38-126) U/L Total Protein 8.4 H (6.3-8.2) g/dL Albumin 4.6 (3.5-5.0) g/dL Globulin 3.8 (1.7-4.1) g/dL Albumin/Globulin Ratio 1.2 (1.0-2.8) SARS-CoV-2 (PCR) Negative (Negative) Discharge Plan Departure Patient Disposition: Home Clinical Impression: Headache Qualifiers: Headache chronicity pattern: acute headache Intractability: intractable Instructions: DI for Migraine, DI for Headache Activity Restrictions/Additional Instructions: *You have been diagnosed with a headache which was difficult to treat. Your COVID test was negative, but you may have a viral upper respiratory infection which is causing her headache. Please remember to stay hydrated, take Tylenol and ibuprofen as needed for your headache. If this is persistent and gets worse please return to the emergency department for another evaluation and possible CT imaging. Please call your primary care provider and schedule a follow-up appointment. Please try and rest, get plenty of sleep, eat healthy food and drink plenty of water, this may help prevent you from getting a headache this bad again. *What to do: *Please continue to take your regular medications as directed. [ ] New medication prescriptions sent to your pharmacy: [ ] [ ] New medication written as a paper prescription [ x] No new medications given *Please follow up with your primary care provider in 2-3 days, call for an appointment. Let them know you were seen in the Emergency Department and that we ask that you be seen in follow up. We will electronically transmit a record of today's note if your PCP is in our system *If you do not have a primary care provider please contact the [facility] Resource line at [phone]. They will ask some questions about your medical history and help get you set up with a doctor in the community. *Return to Emergency Department if you should have any new, worsening or concerning symptoms, such as [fever greater than 101F, chills, worsening pain, persistent vomiting or other bothersome symptoms] Prescriptions: No Action doxycycline monohydrate 100 mg capsule 100 mg PO BID Qty: 20 0RF varenicline 0.5 mg (11)- 1 mg (42) tablets,dose pack See Rx Instructions PO PER PKG DIR Qty: 53 0RF Rx Instructions: PO PER PKG DIR hydrochlorothiazide 25 mg tablet 25 mg PO QDAY Qty: 90 3RF levothyroxine 88 mcg tablet 88 mcg PO DAILY Qty: 90 3RF lisinopril 5 mg tablet 5 mg PO QDAY Qty: 90 3RF rosuvastatin 20 mg tablet 20 mg PO DAILY Qty: 90 2RF albuterol sulfate 90 mcg/actuation HFA aerosol inhaler 2 puff INHALATION Q4-6H PRN (Reason: shortness of breath or wheezing) Qty: 8.5 0RF Referrals: Bri Fulton ARNP [Primary Care Provider] - <Nat Taylor DO - Last Filed: 05/01/21 09:07> Cosign ED Attending Nicolasaature Attestation: I was immediately available in the department for consultation. Documentation has been reviewed.
[2021-04-30 18:37] VITALS: BP 105/52; PULSE 72
[2021-04-30] MEDS: SODIUM CHLORIDE 0.9% 1,000 ML 1000 ML IV (18:37)
[2021-04-30] MEDS: PROCHLORPERAZINE 10 MG/2 ML VIAL IV (18:37)
[2021-04-30] MEDS: diphenhydrAMINE 50 MG/ML VIAL 25 MG IV (18:37)
[2021-04-30] MEDS: KETOROLAC 30 MG/ML VIAL 15 MG IV (18:38)
[2021-04-30] MEDS: ACETAMINOPHEN 325 MG TABLET 975 MG PO (19:34)
[2021-04-30] MEDS: OXYCODONE IR 5 MG TABLET PO (19:34)
[2021-04-30 19:35] LABS: Add Manual Diff / Slide Review NO; Basophils Absolute Auto 0 /uL (0-100); Basophils Percent Auto 0.7 % (0-2); Eosinophils Absolute Auto 200 /uL (0-450); Eosinophils Percent Auto 3.2 % (2-4); Hemoglobin 14.9 g/dL (12.0-16.0); Lymphocytes Absolute Auto 2400 /uL (1100-4500); Lymphocytes Percent Auto 42.7 % (25-40); Mean Corpuscular HGB Conc 34.6 % (30-36); Mean Corpuscular Hemoglobin 32.4 PG (26-34); Mean Corpuscular Volume 93.4 fL (80-100); Monocytes Absolute Auto 300 /uL (0-900); Neutrophils Absolute Auto 2600 /uL (1500-7000); Neutrophils Percent Auto 47.4 % (50-75); Platelet Count 172 X10^3/uL (150-400); Red Blood Cell Count 4.61 X10^6/uL (4.0-5.2); Red Cell Distribution Width 12.9 % (11.6-14.8); White Blood Cell Count 5.5 X10^3/uL (4.5-11.0)
[2021-04-30 19:40] LABS: Alanine Aminotransferase 16 IU/L (<35); Albumin 4.6 g/dL (3.5-5.0); Albumin Globulin Ratio 1.2 (1.0-2.8); Alkaline Phosphatase 75 U/L (38-126); Aspartate Aminotransferase 28 IU/L (14-36); BUN Creatinine Ratio 18.5 (6-22); Bilirubin Total 0.6 mg/dL (0.2-1.3); Blood Urea Nitrogen 12 mg/dL (7-17); Calcium 9.6 mg/dL (8.4-10.2); Carbon Dioxide 29 mmol/L (22-32); Chloride 103 mmol/L (98-107); Estimated Glomerular Filt Rate > 60.0 mL/min (>60); Globulin 3.8 g/dL (1.7-4.1); Glucose 101 mg/dL (80-110); HEMOLYSIS < 15 (0-50); Sodium 138 mmol/L (137-145); Total Protein 8.4 g/dL (6.3-8.2)
[2021-04-30 19:47] VITALS: BP 96/69; PULSE 67; RESP 12; O2SAT 98
== END 2021-04-30 19:49 | disposition home or self-care (01) ==
PROVIDERS: Emergency Medicine; Emergency Provider Nurse Practitioner Critical Care Medicine; PCP Nurse Practitioner Family
DX: R51.9 Headache, unspecified (principal); J02.9 Acute pharyngitis, unspecified; Z20.822 Contact with and (suspected) exposure to COVID-19; F17.200 Nicotine dependence, unspecified, uncomplicated
CPT/HCPCS: 36415; 80053; 85025; 87635; 96361; 96374; 96375; 99284; C9803; J0780; J1200; J1885

== ENCOUNTER → 2022-01-18 09:49 | Outpatient (CLI) | payer OTHER, MEDICAID, SELFPAY ==
--- NOTE | 2022-01-18 09:56 | DI.RAD.S_ITS ---
PROCEDURE: XR LUMBAR SPINE MIN 4V INDICATIONS: Eval pain in right hip/lower back with possible radiculopath TECHNIQUE: 5 views of the lumbar spine were acquired, including bilateral oblique views. COMPARISON: [facility], , L-SPINE 2-3 VIEWS, 12/23/2015, 16:31. FINDINGS: Bones: 5 non rib-bearing vertebrae are present. There is normal bony alignment. No vertebral body compression fractures. No suspicious bony lesions. There is moderate to severe degenerative disc disease present at L5-S1. Soft tissues: Overlying bowel gas pattern is normal. Atherosclerotic vascular calcifications are noted. Oblique images: No pars defects. IMPRESSION: 1. No evidence for acute osseous abnormality involving the lumbar spine. 2. Moderate to severe degenerative disc disease present at L5-S1. 3. Atherosclerotic vascular calcifications. Dictated by: Todd Chandler M.D. on 01/18/2022 at 14:23 Approved by: Todd Chandler M.D. on 01/18/2022 at 14:25
--- NOTE | 2022-01-18 09:56 | DI.MG.S_ITS ---
BILATERAL DIGITAL DIAGNOSTIC MAMMOGRAM 3D/2D: 01/18/2022 CLINICAL: F/u left breast infection. Comparison is made to exams dated: 03/16/2021 ultrasound - [facility], 09/06/2020 mammogram, 02/27/2020 ultrasound, 02/27/2020 mammogram - [facility], and 12/19/2013 mammogram - [facility]. Both breasts are heterogeneously dense, which may obscure small masses (category c / 51-75% glandular tissue). No significant masses, calcifications, or other findings are seen in either breast. IMPRESSION: NEGATIVE There is no abnormality seen in the left breast to correspond with the area of clinical concern. Clinical followup and evaluation are recommended. There is no mammographic evidence of malignancy. Return to annual mammogram screening schedule is recommended. Based on the Tyrer Cuzick model (a risk assessment model) the patient's lifetime risk is 9.7% and her 10 year risk is 4.5%. According to the ACR, ACS, and NCCN guidelines, an annual breast MRI exam along with mammogram is recommended if the patient's lifetime risk is 20% or greater. This exam was interpreted at Station ID: [id number]. NOTE: For mammograms, a report in lay terms will be sent to the patient. Approximately 15% of breast malignancies will not be visualized mammographically. In the management of a palpable breast mass, a negative mammogram must not discourage biopsy of a clinically suspicious lesion. Electronically Signed By: Mio Guillaume M.D. lc/:01/18/2022 10:28:38 letter sent: Clinical Evaluation ACR BI-RADS Category 1: Negative [id number]
--- NOTE | 2022-01-18 09:56 | DI.RAD.S_ITS ---
PROCEDURE: XR HIP W PEL IF DONE DIANE MIN 4V INDICATIONS: Eval pain in right hip/lower back with possible radiculopath TECHNIQUE: AP pelvis with lateral view(s) of the both hip(s). COMPARISON: [facility], CR, [id number] W PEL IF PERFORMED, 12/23/2015, 16:31. FINDINGS: Bones: No fractures or dislocations. Pelvic ring appears intact. No suspicious bony lesions. Previous noted degenerative changes involving both hips to a mild to moderate degree appear relatively stable. A benign bone island in the right femoral neck is unchanged. Soft tissues: The visualized bowel gas pattern is normal. No suspicious soft tissue calcifications. IMPRESSION: 1. No evidence for acute osseous abnormality involving the hips or pelvis. 2. Stable degenerative change involving both hip joints. Dictated by: Todd Chandler M.D. on 01/18/2022 at 16:54 Approved by: Todd Chandler M.D. on 01/18/2022 at 16:58
== END ==
PROVIDERS: PCP Registered Nurse Diabetes Educator; Referring Provider Registered Nurse Diabetes Educator; Visit Provider Registered Nurse Diabetes Educator
DX: N61.1 Abscess of the breast and nipple (principal); M51.37 Other intervertebral disc degeneration, lumbosacral region; M25.551 Pain in right hip; M54.50 Low back pain, unspecified; G89.29 Other chronic pain
CPT/HCPCS: 72110; 73522; 77066; G0279

== ENCOUNTER 2022-04-08 20:28 | Emergency (ER) | payer OTHER, MEDICAID, SELFPAY ==
[2022-04-08 20:35] VITALS: BP 168/74; PULSE 74; RESP 16; TEMP 36.7; O2SAT 100; BMI 264.4
--- NOTE | 2022-04-08 20:41 | DI.RAD.S_ITS ---
PROCEDURE: XR FOREARM LT 2V INDICATIONS: fall TECHNIQUE: 2 views of the forearm were acquired. COMPARISON: None. FINDINGS: Bones: No fractures or dislocations. No suspicious bony lesions. Soft tissues: No suspicious soft tissue calcifications or masses. IMPRESSION: No definite trauma found. Dictated by: Alexandro Matias M.D. on 04/08/2022 at 21:03 Approved by: Alexandro Matias M.D. on 04/08/2022 at 21:03
--- NOTE | 2022-04-08 20:42 | DI.RAD.S_ITS ---
PROCEDURE: XR WRIST LT MIN 3V INDICATIONS: fall TECHNIQUE: 4 views of the wrist were acquired. COMPARISON: None. FINDINGS: Bones: No fractures or dislocations. No suspicious bony lesions. Scaphoid view: No trauma. Soft tissues: No suspicious soft tissue calcifications. IMPRESSION: No osseous trauma found. Dictated by: Alexandro Matias M.D. on 04/08/2022 at 21:03 Approved by: Alexandro Matias M.D. on 04/08/2022 at 21:04
--- NOTE | 2022-04-08 22:20 | ED_ITS ---
HPI - General Adult General Chief complaint: Extremity Injury, Upper Stated complaint: Fell, Twisted wrist Time Seen by Provider: 04/08/22 22:17 Source: patient Mode of arrival: Ambulatory Limitations: no limitations History of Present Illness HPI narrative: 66-year-old female here for evaluation of a left wrist and left forearm discomfort. States she tripped and fell on a carpeted floor to her left forearm. She reports no other injuries from the event. Describes pain from the midportion of the forearm down to her wrist. She is no elbow no shoulder pain. Has not tried anything for the symptoms prior to arrival. Related Data Previous Rx's Medication Instructions Recorded albuterol sulfate 90 mcg/actuation 2 puff inhalation Q4-6H PRN 08/01/21 aerosol inhaler shortness of breath or wheezing #8.5 grams hydrochlorothiazide 25 mg tablet 25 mg PO QDAY #90 tabs 08/01/21 levothyroxine 88 mcg tablet 88 mcg PO DAILY #90 tabs 08/01/21 lisinopril 5 mg tablet 5 mg PO QDAY #90 tabs 08/01/21 rosuvastatin 20 mg tablet 20 mg PO DAILY #90 tabs 08/01/21 pseudoephedrine HCl 30 mg tablet 30 mg PO Q6H #30 tabs 11/01/21 lidocaine 5 % topical patch 1 patch topical DAILY #15 ea 02/06/22 (Lidoderm) meloxicam 15 mg tablet 15 mg PO DAILY #30 tabs 02/06/22 Disabled Parking #1 ea 02/07/22 Allergies Allergy/AdvReac Type Severity Reaction Status Date / Time Penicillins [PENICILLINS] Allergy Intermediate RASH Verified 02/06/22 12:11 lactose [LACTOSE] AdvReac Intermediate GI UPSET Verified 02/06/22 12:11 Review of Systems Musculoskeletal Musculoskeletal: Reports system reviewed and no additional complaints, except as documented Integumentary/Breasts Skin/Breast: Reports system reviewed and no additional complaints, except as documented Neurologic Neurologic: Reports system reviewed and no additional complaints, except as documented Patient History Medical History Arthropathy of right shoulder Breast pain, left Current smoker DDD (degenerative disc disease), lumbosacral Depression (Unknown) Emphysema lung Encounter for smoking cessation counseling Fatigue (07/2019) GERD (gastroesophageal reflux disease) (~2011) Hyperlipemia (Unknown) Hypertension (Unknown) Hypothyroidism (Unknown) Menopause Nipple discharge in female (02/2020) Osteoarthritis, hip, bilateral Surgical History Hx of breast surgery (Unknown) Family History Father Hypertension Diabetes mellitus Social History Smoking Status: Current every day smoker Tobacco: How many years used: 35 second hand exposure: Yes alcohol intake: never substance use type: does not use Smoking Status: Current every day smoker alcohol intake frequency: holidays/special occasions only Substance Use Type: does not use Exam Initial Vital Signs Initial Vital Signs: Vital Signs Temperature 98.1 F 04/08/22 20:35 Pulse Rate 74 04/08/22 20:35 Respiratory Rate 16 04/08/22 20:35 Blood Pressure 168/74 H 04/08/22 20:35 Pulse Oximetry 100 04/08/22 20:35 Oxygen Delivery Method 04/08/22 20:35 Cardio Pulses: radial pulses present on the left Skin General: no rashes or lesions noted Neuro Sensory Exam: no sensory deficits noted Extrem Other: Left shoulder left elbow unremarkable. She does have discomfort to palpation of the left wrist and the left forearm. No snuffbox tenderness. Her left hand is unremarkable. Procedures Orthopedic Splinting/Casting Injury #1: Side: left Upper Extremity Injury Location: wrist Upper Extremity Immobilizer: wrist splint Post splinting neuro exam: intact Post splinting vascular exam: intact Placed by: Nursing Course Orders Ordered: ED Orders 04/08/22 20:41 XR forearm LT 2V Stat 04/08/22 20:42 XR wrist LT min 3V Stat Vital Signs Vital signs: Vital Signs - 8 hr 04/08/22 22:31 Pulse Rate 72 Respiratory Rate 16 Blood Pressure 152/74 H Pulse Oximetry 100 Oxygen Delivery Method Room Air Medical Decision Making Differential Diagnosis Differential Diagnosis: Fracture, dislocation Imaging Data Extremity x-ray #1: Radiologist's Impression: [address] [address] XRay Report Signed Patient: Bala Alan MR#: [id number] : 1955 Acct:[id number] Age/Sex: 66 / F Date of Service: 04/08/22 Loc: ED Accession Number: [id number] ?? Procedure: XR forearm LT 2V Ordering Provider: Todd Christian D.O. PROCEDURE:? XR FOREARM LT 2V ? INDICATIONS:? fall ? TECHNIQUE:? 2 views of the forearm were acquired.? ? COMPARISON:? None. ? FINDINGS:? ? Bones:? No fractures or dislocations.? No suspicious bony lesions.? ? Soft tissues:? No suspicious soft tissue calcifications or masses.? ? ? IMPRESSION:? No definite trauma found. ? Dictated by: Alexandro Matias M.D. on 04/08/2022 at 21:03 ? ? Approved by: Alexandro Matias M.D. on 04/08/2022 at 21:03?? Extremity x-ray #2: Radiologist's Impression: [place] [address] XRay Report Signed Patient: Bala Alan MR#: [id number] : 1955 Acct:[id number] Age/Sex: 66 / F Date of Service: 04/08/22 Loc: ED Accession Number: [id number] ?? Procedure: XR wrist LT min 3V Ordering Provider: Todd Christian D.O. PROCEDURE:? XR WRIST LT MIN 3V ? INDICATIONS: fall ? TECHNIQUE:? 4 views of the wrist were acquired.? ? COMPARISON:? None. ? FINDINGS:? ? Bones:? No fractures or dislocations.? No suspicious bony lesions.? ? Scaphoid view:? No trauma. ? Soft tissues:? No suspicious soft tissue calcifications.? ? IMPRESSION:? No osseous trauma found. ? ? Dictated by: Alexandro Matias M.D. on 04/08/2022 at 21:03 ? ? Approved by: Alexandro Matias M.D. on 04/08/2022 at 21:04?? MDM Narrative Medical decision making narrative: Patient is neurovascularly intact. There are no fractures nor dislocations noted on the x-rays. Patient was informed of this. No other injuries from the event reported by the patient or found on the exam. Patient was placed in a removable wrist splint for her comfort. She is no snuffbox tenderness. She can take Tylenol and ibuprofen for discomfort. She was given return precautions. She expressed understanding and agreement. Discharge Plan Departure Patient Disposition: Home Clinical Impression: Left wrist sprain Instructions: DI for Wrist Sprain, How To Perform RICE (Rest, Ice, Compress, Elevate) Activity Restrictions/Additional Instructions: The wrist splint is for your comfort. You can take it off to shower. You can take Tylenol/ibuprofen for discomfort. You could also ice your wrist. Return to the emergency department for new symptoms. Prescriptions: No Action pseudoephedrine HCl 30 mg tablet 30 mg PO Q6H Qty: 30 1RF Rx Instructions: to help with ear symptoms hydrochlorothiazide 25 mg tablet 25 mg PO QDAY Qty: 90 2RF levothyroxine 88 mcg tablet 88 mcg PO DAILY Qty: 90 2RF lisinopril 5 mg tablet 5 mg PO QDAY Qty: 90 2RF rosuvastatin 20 mg tablet 20 mg PO DAILY Qty: 90 2RF albuterol sulfate 90 mcg/actuation HFA aerosol inhaler 2 puff INHALATION Q4-6H PRN (Reason: shortness of breath or wheezing) Qty: 8.5 0RF meloxicam 15 mg tablet 15 mg PO DAILY Qty: 30 2RF lidocaine [Lidoderm] 5 % adhesive patch,medicated 1 patch topical DAILY Qty: 15 3RF Rx Instructions: leave on most painful area for up to 12 hrs (DME) Disabled Parking See Rx Instructions .Route .MEDSUPPLY Qty: 1 0RF Rx Instructions: I find this patient to be medically disabled and qualified for disabled parking as indicated and signed on the accompanying disabled parking application for individuals. Referrals: Magen Cevallos ARNP [Primary Care Provider] - Stand Alone Forms: Patient Portal/API
[2022-04-08 22:31] VITALS: BP 152/74; PULSE 72; RESP 16; O2SAT 100
== END 2022-04-08 22:33 | disposition home or self-care (01) ==
PROVIDERS: Emergency Provider Emergency Medicine; PCP Registered Nurse Diabetes Educator
DX: S63.502A Unspecified sprain of left wrist, initial encounter (principal); W01.0XXA Fall on same level from slipping, tripping and stumbling without subsequent striking against object, initial encounter
CPT/HCPCS: 73090; 73110; 99282; 99283

== ENCOUNTER → 2022-04-17 11:15 | Outpatient (CLI) | payer OTHER, MEDICAID, SELFPAY ==
[2022-04-17 12:50] LABS: Alanine Aminotransferase 19 IU/L (<35); Albumin 4.3 g/dL (3.5-5.0); Albumin Globulin Ratio 1.2 (1.0-2.8); Alkaline Phosphatase 79 U/L (38-126); Aspartate Aminotransferase 27 IU/L (14-36); Bilirubin Total 0.5 mg/dL (0.2-1.3); Blood Urea Nitrogen 20 mg/dL (7-17); Calcium 9.2 mg/dL (8.4-10.2); Carbon Dioxide 28 mmol/L (22-32); Chloride 101 mmol/L (98-107); Estimated Glomerular Filt Rate > 60 mL/min (>60); Globulin 3.6 g/dL (1.7-4.1); Glucose 101 mg/dL (80-110); HEMOLYSIS < 15 (0-50); Potassium 4.4 mmol/L (3.4-5.1); Sodium 139 mmol/L (137-145); Total Protein 7.9 g/dL (6.3-8.2)
[2022-04-17 13:43] LABS: TSH w/ Reflex to FT4 0.86 uIU/mL (0.47-4.68)
== END ==
PROVIDERS: PCP Registered Nurse Diabetes Educator; Referring Provider Registered Nurse Diabetes Educator; Visit Provider Registered Nurse Diabetes Educator
DX: E78.00 Pure hypercholesterolemia, unspecified (principal); I10 Essential (primary) hypertension; E03.9 Hypothyroidism, unspecified
CPT/HCPCS: 36415; 80053; 84443

== ENCOUNTER → 2022-05-04 11:45 | Outpatient (CLI) | payer OTHER, MEDICAID, SELFPAY ==
[2022-05-05 12:26] LABS: Fecal Immunochemical Test Negative (Negative)
== END ==
PROVIDERS: PCP Registered Nurse Diabetes Educator; Referring Provider Registered Nurse Diabetes Educator; Visit Provider Registered Nurse Diabetes Educator
DX: Z12.11 Encounter for screening for malignant neoplasm of colon (principal)
CPT/HCPCS: 82274

== ENCOUNTER → 2022-05-24 13:48 | Outpatient (CLI) | payer MEDICARE, OTHER, MEDICAID, SELFPAY ==
--- NOTE | 2022-05-24 | DI.MRI.S_ITS ---
PROCEDURE: MR LUMBAR SPINE WO CON INDICATIONS: Radiculopathy, lumbar region TECHNIQUE: Noncontrast sagittal T1 spin echo and T2 fast echo, sagittal STIR, and T2 fast spin echo through the lumbar spine. In cases with scoliosis, additional coronal T2 fast spin echo may be performed. COMPARISON: [facility], CR, XR LUMBAR SPINE MIN 4V, 01/18/2022, 10:25. FINDINGS: Image quality: Excellent. Alignment and Curvature: 5 lumbar type vertebral bodies are present by plain film. There is loss of normal lumbar lordosis. 3 mm of retrolisthesis of L5 on S1. Bone Marrow: Marrow is of normal overall signal. No acute vertebral body compression fractures. Mild reactive signal throughout the endplates of the lumbar spine and lower thoracic spine. Spinal Cord: Conus medullaris terminates at the mid L2 level. Visualized cord demonstrates normal signal and size. Paraspinous Soft Tissues: No paravertebral masses. T12-L1: Mild disc height loss and desiccation. Mild diffuse disc bulge with superimposed small central disc extrusion which extends inferiorly to the mid L1 level. Mild canal stenosis. No foraminal stenosis. L1-L2: Mild disc height loss and desiccation. Mild diffuse disc bulge. Mild facet and ligamentum flavum hypertrophy. Mild epidural lipomatosis. Mild canal stenosis. Mild bilateral foraminal stenosis. L2-L3: Mild disc desiccation. Mild facet and ligamentum flavum hypertrophy. Mild epidural lipomatosis. Mild canal stenosis. No foraminal stenosis. L3-L4: Mild disc height loss and desiccation. Mild diffuse disc bulge. Mild facet and ligamentum flavum hypertrophy. Mild epidural lipomatosis. Mild canal stenosis. Mild right and moderate left foraminal stenosis. L4-L5: Mild disc desiccation and diffuse disc bulge. Mild facet and ligamentum flavum hypertrophy. Mild epidural lipomatosis. Mild canal stenosis. Moderate to severe bilateral foraminal stenosis. Bilateral L4 nerve root compression. L5-S1: Moderate disc height loss and desiccation. Mild diffuse disc bulge with small superimposed central protrusion. Mild bilateral facet hypertrophy. Mild canal stenosis. Mild right and moderate left foraminal stenosis. IMPRESSION: 1. Multilevel degenerative disc and facet disease, as well as ligamentum flavum hypertrophy and epidural lipomatosis. 2. Mild multilevel canal stenoses. 3. Multilevel foraminal stenoses, worst at L4-L5 where there is associated intraforaminal nerve root compression. Recommend correlation with clinical symptoms to ascertain relevance of these findings. Dictated by: Roque Maciel M.D. on 05/24/2022 at 15:28 Transcribed by: GRISEL on 05/24/2022 at 15:31 Approved by: Roque Maciel M.D. on 05/24/2022 at 15:46
== END ==
PROVIDERS: PCP Registered Nurse Diabetes Educator; Referring Provider Physical Medicine & Rehabilitation Pain Medicine; Visit Provider Physical Medicine & Rehabilitation Pain Medicine
DX: M51.16 Intervertebral disc disorders with radiculopathy, lumbar region (principal); M51.17 Intervertebral disc disorders with radiculopathy, lumbosacral region; M48.061 Spinal stenosis, lumbar region without neurogenic claudication; M48.07 Spinal stenosis, lumbosacral region
CPT/HCPCS: 72148

== ENCOUNTER → 2023-02-07 16:58 | Outpatient (CLI) | payer MEDICARE, OTHER, MEDICAID, SELFPAY ==
--- NOTE | 2023-02-07 17:08 | DI.RAD.S_ITS ---
PROCEDURE: XR CHEST 2V INDICATIONS: Cough TECHNIQUE: 2 views of the chest were acquired. COMPARISON: [facility], CR, XR CHEST 2V, 05/26/2019, 16:12. [facility], CR, XR CHEST 2V, 08/02/2018, 9:48. FINDINGS: Surgical changes and devices: None. Lungs and pleura: Lungs are clear. No pleural effusions or pneumothorax. Mediastinum: Mediastinal contours are normal. Heart size is normal. Aortic arch is calcified indicating atherosclerosis. Bones and chest wall: No suspicious bony abnormalities. Soft tissues appear unremarkable. IMPRESSION: No acute cardiopulmonary abnormality is seen. Dictated by: Kirsten Ogden M.D. on 02/08/2023 at 9:23 Approved by: Kirsten Ogden M.D. on 02/08/2023 at 9:26
== END ==
PROVIDERS: PCP Registered Nurse Diabetes Educator; Referring Provider Nurse Practitioner Family; Visit Provider Nurse Practitioner Family
DX: R05.9 Cough, unspecified (principal)
CPT/HCPCS: 71046

== ENCOUNTER 2023-09-04 11:06 | Emergency (ER) | payer MEDICARE, OTHER, MEDICAID, SELFPAY ==
[2023-09-04 11:09] VITALS: BP 150/68; PULSE 77; RESP 14; TEMP 37.1; O2SAT 100; BMI 21.1
[2023-09-04 11:23] VITALS: BP 150/71; PULSE 77; O2SAT 98
[2023-09-04 11:30] VITALS: BP 127/58; PULSE 71; O2SAT 97
[2023-09-04 12:00] VITALS: PULSE 69; O2SAT 97
[2023-09-04 12:01] VITALS: BP 117/55; PULSE 70; O2SAT 97
--- NOTE | 2023-09-04 12:13 | DI.US.S_ITS ---
PROCEDURE: US BREAST LT LIMITED COMPARISON: [facility], BREAST LT LIMITED, 03/16/2021, 12:43. INDICATIONS: PAIN; HISTORY INFECTIONS FINDINGS: Real-time ultrasound of the left breast 4-6 o'clock, 9-11 o'clock, and retroareolar regions was performed. Garner scale images of the real-time examination or reviewed. No significant abnormalities were seen sonographically in the left breast. Specifically, no finding to explain the patient's pain. No abscess or significant edema. IMPRESSION: No abscess or phlegmon in the area of left breast pain. Return to annual mammogram screening schedule is recommended. Findings and recommendations were conveyed to the patient at the time of exam. Dictated by: Tammy Mendez M.D. on 09/04/2023 at 12:50 Approved by: Tammy Mendez M.D. on 09/04/2023 at 12:56
[2023-09-04 13:27] VITALS: BP 131/63; PULSE 71; O2SAT 99
--- NOTE | 2023-09-04 19:00 | ED.SKABFB ---
HPI - Skin/Abscess/Foreign Bdy <Yimi Rowland PA-C - Last Filed: 09/04/23 19:06> General Chief complaint: Skin/Abscess/Foreign Body Stated complaint: LT BREAST HAS AN INFECTION Time Seen by Provider: 09/04/23 11:57 Source: patient Mode of arrival: Ambulatory Limitations: no limitations History of Present Illness HPI narrative: 68-year-old female with past medical history hypertension, hyperlipidemia, hypothyroidism, GERD, diabetes, frequent left breast infections presents to the ED with 2 days of pain, redness, swelling of the left nipple and areolar region. Patient states that she has had frequent breast infections after she had a I and D procedure for an infection several years ago. Patient has been treated the past few time with doxycycline despite her cultures indicating resistance to doxycycline. Patient does seem to have recovered from those infections. Today patient states that she has had 2 days of redness, pain, swelling of the left nipple and areola as well as a subject fever. Denies nausea, vomiting, chest pain, shortness of breath, lightheadedness, dizziness, syncope. Related Data Previous Rx's Medication Instructions Recorded disabled parking #1 ea 01/22/23 meloxicam 15 mg tablet 15 mg PO DAILY #120 tabs 01/22/23 albuterol sulfate 90 mcg/actuation 2 puff inhalation Q6H PRN 02/07/23 aerosol inhaler shortness of breath or wheezing #6.7 grams gabapentin 100 mg capsule See Rx Instructions PO BEDTIME 08/28/23 sciatica #360 caps hydrochlorothiazide 25 mg tablet 25 mg PO QDAY #180 tabs 08/28/23 levothyroxine 75 mcg tablet 75 mcg PO DAILY #90 tabs 08/28/23 lisinopril 5 mg tablet 5 mg PO QDAY #180 tabs 08/28/23 rosuvastatin 20 mg tablet 20 mg PO DAILY #180 tabs 08/28/23 ciprofloxacin HCl 750 mg tablet 750 mg PO Q12H 10 days #20 tabs 09/04/23 Allergies Allergy/AdvReac Type Severity Reaction Status Date / Time Penicillins [PENICILLINS] Allergy Intermediate RASH Verified 09/04/23 11:15 lactose [LACTOSE] AdvReac Intermediate GI UPSET Verified 09/04/23 11:15 Review of Systems <Yimi Rowland PA-C - Last Filed: 09/04/23 19:06> Constitutional Constitutional: Denies chills, Denies fatigue, Denies fever(s), Denies frequent falls, Denies lethargy and Denies weakness Eyes Eyes: Denies change in vision, Denies eye discharge, Denies irritation and Denies loss of vision ENT Ears, Nose, Mouth, and Throat: Denies change in voice, Denies dizziness, Denies neck pain, Denies sore throat and Denies throat swelling Cardiovascular Cardiovascular: Denies chest pain, Denies irregular heart rhythm, Denies lightheadedness, Denies palpitations, Denies dyspnea, Denies dyspnea on exertion and Denies orthopnea Respiratory Respiratory: Denies cough, Denies dyspnea, Denies dyspnea on exertion and Denies wheezing Gastrointestinal Gastrointestinal: Denies abdominal pain, Denies change in bowel habits, Denies diarrhea, Denies nausea and Denies vomiting Musculoskeletal Musculoskeletal: Denies neck pain and Denies numbness Integumentary/Breasts Skin/Breast: Denies pruritus, Denies erythema, Denies rash and Denies wounds Comments: Left nipple, areola swelling, erythema, pain Neurologic Neurologic: Denies behavioral changes, Denies confusion, Denies dizziness, Denies frequent falls, Denies loss of vision, Denies numbness and Denies weakness Psychiatric Psychiatric: Denies anxiety, Denies behavioral changes, Denies confusion, Denies depression, Denies homicidal ideation and Denies suicidal ideation Endocrine Endocrine: Denies fatigue, Denies flushing and Denies palpitations Hematologic/Lymphatic Hematologic/Lymphatic: Denies easy bruising Allergic/Immunologic Allergic/Immunologic: Denies urticaria, Denies throat swelling and Denies wheezing Patient History <Yimi Rowland PA-C - Last Filed: 09/04/23 19:06> Medical History Arthropathy of right shoulder Breast pain, left Current smoker DDD (degenerative disc disease), lumbosacral Depression (Unknown) Emphysema lung Encounter for smoking cessation counseling Fatigue (07/2019) GERD (gastroesophageal reflux disease) (~2011) Hyperlipemia (Unknown) Hypertension (Unknown) Hypothyroidism (Unknown) Menopause Nipple discharge in female (02/2020) Osteoarthritis, hip, bilateral Surgical History Hx of breast surgery (Unknown) Family History Father Hypertension Diabetes mellitus Social History Smoking Status: Current every day smoker Tobacco: How many years used: 35 second hand exposure: Yes alcohol intake: never substance use type: does not use Smoking Status: Current every day smoker alcohol intake frequency: holidays/special occasions only Substance Use Type: does not use Exam <Yimi Rowland PA-C - Last Filed: 09/04/23 19:06> Narrative Exam Narrative: Const General:?cooperative, healthy appearing and comfortable HENNY Head:?normal to inspection Ears:?hearing grossly normal bilaterally Nose:?external nose normal Face and sinus:?normal facial exam and sinuses nontender Mouth:?oral mucosae normal Throat:?posterior oropharynx normal Eyes General:?appearance normal, both eyes and all related structures Neck Neck:?normal visual inspection and no lymphadenopathy noted Resp Effort & Inspection:?normal respiratory effort Auscultation:?clear to auscultation bilaterally Cardio Rate:?regular rate Rhythm:?regular rhythm Integumentary Left nipple and areola appears erythematous, swollen, tender to touch. No discharge noted on exam. Neuro General:?patient alert, patient awake and patient oriented x3 Initial Vital Signs Initial Vital Signs: Vital Signs Temperature 98.7 F 09/04/23 11:09 Pulse Rate 77 09/04/23 11:09 Respiratory Rate 14 09/04/23 11:09 Blood Pressure 150/68 H 09/04/23 11:09 Pulse Oximetry 100 09/04/23 11:09 Oxygen Delivery Method Room Air 09/04/23 11:09 <Silvia Peters DO - Last Filed: 09/05/23 08:41> Initial Vital Signs Initial Vital Signs: Vital Signs Temperature 98.7 F 09/04/23 11:09 Pulse Rate 77 09/04/23 11:09 Respiratory Rate 14 09/04/23 11:09 Blood Pressure 150/68 H 09/04/23 11:09 Pulse Oximetry 100 09/04/23 11:09 Oxygen Delivery Method Room Air 09/04/23 11:09 Course <Yimi Rowland PA-C - Last Filed: 09/04/23 19:06> Orders Ordered: ED Orders 09/04/23 12:13 US breast LT limited Stat Vital Signs Vital signs: Vital Signs - 8 hr 09/04/23 11:09 09/04/23 11:23 09/04/23 11:23 Temperature 98.7 F Pulse Rate 77 77 Respiratory Rate 14 Blood Pressure 150/68 H 150/71 H Pulse Oximetry 100 98 Oxygen Delivery Method Room Air 09/04/23 11:30 09/04/23 12:00 09/04/23 12:01 Temperature Pulse Rate 71 69 70 Respiratory Rate Blood Pressure 127/58 L Pulse Oximetry 97 97 97 Oxygen Delivery Method 09/04/23 12:01 09/04/23 13:27 Temperature Pulse Rate 71 Respiratory Rate Blood Pressure 117/55 L 131/63 Pulse Oximetry 99 Oxygen Delivery Method <Silvia Peters DO - Last Filed: 09/05/23 08:41> Orders Ordered: ED Orders 09/04/23 12:13 breast LT limited Stat Vital Signs Vital signs: Vital Signs - 8 hr 09/04/23 11:09 09/04/23 11:23 09/04/23 11:23 Temperature 98.7 F Pulse Rate 77 77 Respiratory Rate 14 Blood Pressure 150/68 H 150/71 H Pulse Oximetry 100 98 Oxygen Delivery Method Room Air 09/04/23 11:30 09/04/23 12:00 09/04/23 12:01 Temperature Pulse Rate 71 69 70 Respiratory Rate Blood Pressure 127/58 L Pulse Oximetry 97 97 97 Oxygen Delivery Method 09/04/23 12:01 09/04/23 13:27 Temperature Pulse Rate 71 Respiratory Rate Blood Pressure 117/55 L 131/63 Pulse Oximetry 99 Oxygen Delivery Method MDM - Skin/Abscess/Foreign Bdy <Yimi Rowland PA-C - Last Filed: 09/04/23 19:06> MDM Narrative Medical decision making narrative: 68-year-old female with past medical history hypertension, hyperlipidemia, hypothyroidism, GERD, diabetes, frequent left breast infections presents to the ED with 2 days of pain, redness, swelling of the left nipple and areolar region. Concern for cellulitis/mastitis versus breast abscess versus other. Obtained breast ultrasound with no abscess or phlegmon in the area of the left breast pain. No significant abnormalities were seen sonographically in the left breast. Given these findings, will treat for cellulitis/mastitis. Will treat with ciprofloxacin which is susceptible to Enterococcus faecalis from patient's previous wound cultures. Recommend follow-up with PCP. Recommend following up with a mammogram. ED return precautions were discussed with patient. Patient verbalized understanding. Medical records reviewed: Yes Discharge Plan Departure Patient Disposition: Home Clinical Impression: Breast infection Instructions: DI for Cellulitis -- Adult Activity Restrictions/Additional Instructions: You were evaluated in the ED today for a breast infection. Your ultrasound was normal and did not show an abscess. Your symptoms are most consistent with a skin infection for which you are being prescribed antibiotics. Please take the antibiotics as prescribed. Please follow-up with your PCP as soon as possible. It is also advisable to follow-up with a mammogram. Return to the ED if you have worsening symptoms. Prescriptions: New ciprofloxacin HCl 750 mg tablet 750 mg PO Q12H 10 Days Qty: 20 0RF No Action albuterol sulfate 90 mcg/actuation HFA aerosol inhaler 2 puff inhalation Q6H PRN (Reason: shortness of breath or wheezing) Qty: 6.7 0RF meloxicam 15 mg tablet 15 mg PO DAILY Qty: 120 0RF (DME) disabled parking See Rx Instructions .ROUTE .MEDSUPPLY Qty: 1 0RF Rx Instructions: I find this patient to be medically disabled and qualified for Disabled Parking as indicated, and signed, on the Accompanying Disabled Parking Application for individuals. Permit active for 1 year gabapentin 100 mg capsule See Rx Instructions PO BEDTIME Qty: 360 0RF Rx Instructions: Take one capsule at bedtime for 2 weeks, if no relief start taking 2 capsules at bedtime x 2 weeks; if no relief take 3 capsules at bedtime thereafter. This is for sciatica - nerve pain hydrochlorothiazide 25 mg tablet 25 mg PO QDAY Qty: 180 3RF Rx Instructions: Take one tablet once daily for high blood pressure lisinopril 5 mg tablet 5 mg PO QDAY Qty: 180 3RF Rx Instructions: Take one tablet once daily for high blood pressure rosuvastatin 20 mg tablet 20 mg PO DAILY Qty: 180 3RF Rx Instructions: Take one tablet once daily for high cholesterol levothyroxine 75 mcg tablet 75 mcg PO DAILY Qty: 90 0RF Rx Instructions: Take one tablet once daily - one hour prior to eating Referrals: Magen Cevallos ARNP [Primary Care Provider] - Stand Alone Forms: Patient Portal/API ED Sign-out <Silvia Peters, DO - Last Filed: 09/05/23 08:41> Cosign ED Attending Cosignature Attestation: I was available for consultation.
== END 2023-09-04 13:29 | disposition home or self-care (01) ==
PROVIDERS: Emergency Provider Student in an Organized Health Care Education/Training Program; PCP Registered Nurse Diabetes Educator
DX: N61.0 Mastitis without abscess (principal)
CPT/HCPCS: 76642; 99283

== ENCOUNTER → 2023-11-13 11:50 | Outpatient (CLI) | payer MEDICARE, OTHER, MEDICAID, SELFPAY ==
--- NOTE | 2023-11-13 11:54 | DI.RAD.S_ITS ---
PROCEDURE: XR KNEE RT 3V INDICATIONS: chronic right knee pain TECHNIQUE: 3 views of the knee were acquired. COMPARISON: [facility], , KNEE 3V LEFT, 03/03/2015, 14:59. FINDINGS: No acute fracture or dislocation. The joint spaces are preserved. Small suprapatellar recess joint effusion. Quadriceps enthesopathy on the superior pole of the patella. IMPRESSION: No acute fracture or dislocation of the right knee. Dictated by: Arturo Warner M.D. on 11/13/2023 at 15:35 Approved by: Arturo Warner M.D. on 11/13/2023 at 15:37
[2023-11-13 18:44] LABS: TSH w/ Reflex to FT4 2.52 uIU/mL (0.47-4.68)
== END ==
PROVIDERS: PCP Registered Nurse Diabetes Educator; Referring Provider Registered Nurse Diabetes Educator; Visit Provider Registered Nurse Diabetes Educator
DX: M25.461 Effusion, right knee (principal); E03.9 Hypothyroidism, unspecified; G89.29 Other chronic pain; M25.561 Pain in right knee
CPT/HCPCS: 36415; 73562; 84443

== ENCOUNTER 2024-05-29 12:05 | Emergency (ER) | payer MEDICARE, MEDICAID, SELFPAY ==
[2024-05-29] VITALS (8 sets, daily range): BP systolic 101–172; BP diastolic 52–78; PULSE 61–77; RESP 13–18; TEMP 36.8; O2SAT 97–100; BMI 24.7
--- NOTE | 2024-05-29 12:22 | EKG_ITS ---
[address] [address] Test Date: 2024-05-29 Pat Name: Bala Alan Department: Room: Gender: Female [employer] Installer: CELIO : 1955 Requested By: Order Number: [id number] Reading MD: Stewart Gutierrez MD Measurements Intervals [place] Rate: 65 P: 78 WV: 182 QRS: 77 QRSD: 94 T: 72 QT: 406 QTc: 422 Interpretive Statements Normal sinus rhythm Incomplete right bundle branch block NO PRIOR TRACING Electronically Signed On 05-29-2024 16:41:15 PDT by Stewart Gutierrez MD
--- NOTE | 2024-05-29 12:37 | ED_ITS ---
HPI - General Adult General Chief complaint: Abdominal Pain Stated complaint: Stomach pain Time Seen by Provider: 05/29/24 12:17 Source: patient Mode of arrival: Ambulatory History of Present Illness HPI narrative: 69-year-old woman with a history of hypothyroidism, hypertension, hyperlipidemia was recently out round her grandchildren who had mild gastrointestinal viral symptoms for the last couple of days. She had symptoms that began with vomiting and then a couple of days of diarrhea she continues to complain of severe fatigue symptom that mainly brought her in today is continued epigastric pain that is worse every time she eats. She took some Imodium and that essentially resolved the diarrhea. She is having almost normal stools in his passing gas. She reports no blood in diarrhea or in emesis. She has never had significant reflux, gallbladder issues or gastric concerns previously. No chest pain, palpitations, dyspnea or fever Related Data Previous Rx's Medication Instructions Recorded albuterol sulfate 90 mcg/actuation 2 puff inhalation Q6H PRN 02/07/23 aerosol inhaler shortness of breath or wheezing #6.7 grams hydrochlorothiazide 25 mg tablet 25 mg PO QDAY #180 tabs 08/28/23 lisinopril 5 mg tablet 5 mg PO QDAY #180 tabs 08/28/23 rosuvastatin 20 mg tablet 20 mg PO DAILY #180 tabs 08/28/23 disabled parking #1 ea 11/13/23 gabapentin 100 mg capsule See Rx Instructions .Route 11/13/23 .COMPLEX sciatica #270 caps lidocaine 5 % topical patch 1 patch topical DAILY #30 ea 11/13/23 meloxicam 15 mg tablet 15 mg PO DAILY #90 tabs 11/13/23 levothyroxine 75 mcg tablet 75 mcg PO DAILY #90 tabs 11/15/23 omeprazole 40 mg capsule,delayed 40 mg PO DAILY #14 caps 05/29/24 release ondansetron 4 mg disintegrating 4 mg PO Q8H PRN nausea and 05/29/24 tablet vomiting #10 tabs Allergies Allergy/AdvReac Type Severity Reaction Status Date / Time Penicillins [PENICILLINS] Allergy Intermediate RASH Verified 11/13/23 09:59 lactose [LACTOSE] AdvReac Intermediate GI UPSET Verified 11/13/23 09:59 Review of Systems Review of Systems Narrative: Pertinent positive and negative findings as per HPI Patient History Medical History Osteoarthritis, hip, bilateral DDD (degenerative disc disease), lumbosacral Current smoker Encounter for smoking cessation counseling Emphysema lung Nipple discharge in female (02/2020) Breast pain, left Menopause Fatigue (07/2019) Arthropathy of right shoulder Depression (Unknown) GERD (gastroesophageal reflux disease) (~2011) Hypertension (Unknown) Hyperlipemia (Unknown) Hypothyroidism (Unknown) Surgical History Hx of breast surgery (Unknown) Family History Father Hypertension Diabetes mellitus Social History Smoking Status: Current every day smoker Tobacco: How many years used: 35 second hand exposure: Yes alcohol intake: never substance use type: does not use Smoking Status: Current every day smoker alcohol intake frequency: holidays/special occasions only Exam Initial Vital Signs Initial Vital Signs: Vital Signs Temperature 98.2 F 05/29/24 12:16 Pulse Rate 72 05/29/24 12:16 Respiratory Rate 18 05/29/24 12:16 Blood Pressure 172/78 H 05/29/24 12:16 Pulse Oximetry 100 05/29/24 12:16 Oxygen Delivery Method Room Air 05/29/24 12:16 General: Healthy appearing, in no acute distress. Able to give a complete and coherent history. Well-nourished well-developed HEENT: Moist mucous membranes, normal sclera with reactive pupils, Respiratory: Lungs are clear to auscultation, no wheezing no rales no rhonchi. Full and symmetrical air movement Cardiac: Regular rate and rhythm no murmurs no bruits Abdomen: Soft, mild epigastric tenderness, no left or right upper abdominal tenderness, remainder of belly exam is entirely benign, no rebound or guarding Skin: Warm and dry, no rashes Neurologic: Grossly neurologically intact with no obvious asymmetries or abnormalities Extremities: No trauma, well perfused Psych: Cooperative, appropriate insight and affect Course Orders Ordered: ED Orders 05/29/24 12:20 Complete Blood Count AUTO DIFF Stat Comprehensive Metabolic Panel Stat Lipase Stat Magnesium Stat Troponin I Stat 05/29/24 13:28 Urinalysis and Microscopic Stat Urine Culture Stat Discontinued Medications Sodium Chloride (Normal Saline 0.9%) 1,000 mls @ 1,000 mls/hr IV BOLUS ONE Stop: 05/29/24 13:48 Last Admin: 05/29/24 13:31 Dose: 1,000 mls/hr Documented By: TRINITY Ondansetron HCl (Ondansetron 4 Mg/2 Ml Inj) 4 mg IV NOW ONE Stop: 05/29/24 12:50 Last Admin: 05/29/24 13:33 Dose: 4 mg Documented By: TRINITY Pantoprazole Sodium (Pantoprazole 40 Mg Vial) 40 mg IV NOW ONE Stop: 05/29/24 12:50 Last Admin: 05/29/24 13:33 Dose: 40 mg Documented By: TRINITY Vital Signs Vital signs: Vital Signs - 8 hr 05/29/24 12:16 Temperature 98.2 F Pulse Rate 72 Respiratory Rate 18 Blood Pressure 172/78 H Pulse Oximetry 100 Oxygen Delivery Method Room Air Medical Decision Making Lab Data 05/29/24 12:20 05/29/24 12:20 Labs: Lab Results 05/29/24 05/29/24 Range/Units 12:20 13:28 WBC 6.2 (4.5-11.0) X10^3/uL RBC 4.31 (4.0-5.2) X10^6/uL Hgb 13.9 (12.0-16.0) g/dL Hct 41.2 (36-46) % MCV 95.7 (80-100) fL MCH 32.3 (26-34) PG MCHC 33.8 (30-36) % RDW 13.0 (11.6-14.8) % Plt Count 144 L (150-400) X10^3/uL Neut % (Auto) 66.6 (50-75) % Lymph % (Auto) 25.2 (25-40) % Haines % (Auto) 6.4 (3-14) % Eos % (Auto) 1.1 L (2-4) % Baso % (Auto) 0.7 (0-2) % Neut # (Auto) 4100 (2656-7121) /uL Lymph # (Auto) 1600 (8755-9206) /uL Haines # (Auto) 400 (0-900) /uL Eos # (Auto) 100 (0-450) /uL Baso # (Auto) 0 (0-100) /uL Sodium 137 (137-145) mmol/L Potassium 4.2 (3.4-5.1) mmol/L Chloride 100 (98-107) mmol/L Carbon Dioxide 26 (22-32) mmol/L BUN 13 (7-17) mg/dL Creatinine 0.64 (0.52-1.04) mg/dL Estimated GFR > 60 (>60) mL/min BUN/Creatinine Ratio 20.3 (6-22) Glucose 98 (80-110) mg/dL Calcium 9.3 (8.4-10.2) mg/dL Magnesium 1.8 (1.6-2.3) mg/dL Total Bilirubin 0.9 (0.2-1.3) mg/dL AST 44 H (14-36) IU/L ALT 37 H (<35) IU/L Alkaline Phosphatase 58 (38-126) U/L Troponin I < 0.012 (0.01-0.034) ng/mL Total Protein 7.3 (6.3-8.2) g/dL Albumin 4.5 (3.5-5.0) g/dL Globulin 2.8 (1.7-4.1) g/dL Albumin/Globulin Ratio 1.6 (1.0-2.8) Lipase 45 (23-300) U/L Urine Color Yellow Urine Appearance Clear Urine pH 6.0 (4.5-8.0) Ur Specific [place] <=1.005 (1.000-1.035) Urine Protein Negative (Negative) Urine Glucose (UA) Negative (Negative) g/dL Urine Ketones Negative (NEGATIVE) Urine Occult Blood 1+ H (Negative) Urine Nitrate Negative (Negative) Urine Bilirubin Negative (NEGATIVE) Urine Urobilinogen 0.2 (0.2) E.U./dL Ur Leukocyte Esterase 1+ H (NEGATIVE) Urine RBC 1-5/hpf (0-5/HPF) Urine WBC 5-10/hpf H (0-5/HPF) Ur Squamous Epith Cells 1-5 /hpf (0-5/HPF) Urine Bacteria Occasional (0-1) (None) Ur Culture Indicated? Specimen cultured Vol Urine Centrifuged 10ml (spun) MDM Narrative Medical decision making narrative: CC: Epigastric pain Complicating co-morbidities: Resolving viral gastroenteritis symptoms Data collected from: patient Differential considered: Gastric irritation from recent viral syndrome, gallbladder disease, gastric ulcer, pancreatitis, persistent viral syndrome Exam documented above, pertinent findings include: Patient appears fatigued, she does have some mild epigastric tenderness remainder exam is benign Lab Test results independently reviewed as above. Pertinent findings: CBC is unremarkable Chemistries show normal renal function. Minimally elevated AST and ALT, normal alk-phos and bilirubin Troponin is undetectable Lipase is reassuring Independently reviewed EKG: EKG shows sinus rhythm at a rate of 65. No acute changes Discussion: 69-year-old woman with resolving gastroenteritis persistent weakness and epigastric tenderness. On Re exam she is feeling significantly improved. Lab work is quite reassuring. There is no evidence of acute anemia, electrolyte abnormalities or renal failure. Minimally elevated AST and ALT is consistent with a recent viral etiology. She has not anemic does not have any leukocytosis, I do not suspect GI bleeding at this point. I believe she is simply suffering be recovery effects after gastroenteritis. We will suggest Zofran for nausea and 2 weeks of omeprazole to help reduce stomach acid. Reassurance is given. I do not see any indication of life-threatening abnormality that would require additional imaging or hospitalization today. Questions are answered she is safe for discharge Discharge Plan Departure Patient Disposition: Home Clinical Impression: Abdominal pain, epigastric, Gastroenteritis Instructions: DI for Viral Gastroenteritis -- Adult Activity Restrictions/Additional Instructions: Thank you for coming in today Your blood work is quite reassuring. There was no sign of significant bacterial infection, significant blood loss, electrolyte abnormalities or kidney problems. There are some minimal elevations to your liver enzymes which we frequently do see after a viral gastroenteritis. There was no sign of anything that would require additional imaging or surgery. I think you simply needs more time for your gastrointestinal lining to heal after this recent virus. I have given you 2 weeks of omeprazole, this is a medicine to reduce stomach acid which may help with the pain in your abdomen. I have also given you a prescription for ondansetron/Zofran. This is a nausea medication if required. Both of these medications were transmitted to [facility] I would recommend probiotics to repopulate your gut with healthy bacteria. I would also recommend a simple bland diet including bananas, rice, applesauce, toast for a couple of days. If you find that you are getting worse or develop any new symptoms, please feel free to return to the emergency department for further evaluation. Prescriptions: New omeprazole 40 mg capsule,delayed release(DR/EC) 40 mg PO DAILY Qty: 14 0RF ondansetron 4 mg tablet,disintegrating 4 mg PO Q8H PRN (Reason: nausea and vomiting) Qty: 10 0RF No Action albuterol sulfate 90 mcg/actuation HFA aerosol inhaler 2 puff inhalation Q6H PRN (Reason: shortness of breath or wheezing) Qty: 6.7 0RF meloxicam 15 mg tablet 15 mg PO DAILY Qty: 90 1RF gabapentin 100 mg capsule See Rx Instructions .ROUTE .COMPLEX Qty: 270 1RF Rx Instructions: Take 1 cap by mouth up to 3 times daily lidocaine 5 % adhesive patch,medicated 1 patch topical DAILY Qty: 30 5RF Rx Instructions: leave on most painful area for up to 12 hrs (DME) disabled parking See Rx Instructions .ROUTE .MEDSUPPLY Qty: 1 0RF Rx Instructions: I find this patient to be medically disabled and qualified for Disabled Parking as indicated, and signed, on the Accompanying Disabled Parking Application for individuals. levothyroxine 75 mcg tablet 75 mcg PO DAILY Qty: 90 3RF Rx Instructions: Take one tablet once daily - one hour prior to eating hydrochlorothiazide 25 mg tablet 25 mg PO QDAY Qty: 180 3RF Rx Instructions: Take one tablet once daily for high blood pressure lisinopril 5 mg tablet 5 mg PO QDAY Qty: 180 3RF Rx Instructions: Take one tablet once daily for high blood pressure rosuvastatin 20 mg tablet 20 mg PO DAILY Qty: 180 3RF Rx Instructions: Take one tablet once daily for high cholesterol Referrals: Magen Cevallos ARNP [Primary Care Provider] - Stand Alone Forms: Patient Portal/API/Survey
[2024-05-29 12:58] LABS: Add Manual Diff / Slide Review NO; Basophils Absolute Auto 0 /uL (0-100); Basophils Percent Auto 0.7 % (0-2); Eosinophils Absolute Auto 100 /uL (0-450); Eosinophils Percent Auto 1.1 % (2-4); Hematocrit 41.2 % (36-46); Hemoglobin 13.9 g/dL (12.0-16.0); Lymphocytes Absolute Auto 1600 /uL (1100-4500); Lymphocytes Percent Auto 25.2 % (25-40); Mean Corpuscular HGB Conc 33.8 % (30-36); Mean Corpuscular Hemoglobin 32.3 PG (26-34); Mean Corpuscular Volume 95.7 fL (80-100); Monocytes Absolute Auto 400 /uL (0-900); Monocytes Percent Auto 6.4 % (3-14); Neutrophils Absolute Auto 4100 /uL (1500-7000); Neutrophils Percent Auto 66.6 % (50-75); Platelet Count 144 X10^3/uL (150-400); Red Blood Cell Count 4.31 X10^6/uL (4.0-5.2); White Blood Cell Count 6.2 X10^3/uL (4.5-11.0)
[2024-05-29 13:05] LABS: Alanine Aminotransferase 37 IU/L (<35); Albumin 4.5 g/dL (3.5-5.0); Albumin Globulin Ratio 1.6 (1.0-2.8); Alkaline Phosphatase 58 U/L (38-126); Aspartate Aminotransferase 44 IU/L (14-36); BUN Creatinine Ratio 20.3 (6-22); Bilirubin Total 0.9 mg/dL (0.2-1.3); Blood Urea Nitrogen 13 mg/dL (7-17); Calcium 9.3 mg/dL (8.4-10.2); Carbon Dioxide 26 mmol/L (22-32); Chloride 100 mmol/L (98-107); Estimated Glomerular Filt Rate > 60 mL/min (>60); Globulin 2.8 g/dL (1.7-4.1); Glucose 98 mg/dL (80-110); HEMOLYSIS 69 (0-50); Lipase 45 U/L (23-300); Magnesium 1.8 mg/dL (1.6-2.3); Potassium 4.2 mmol/L (3.4-5.1); Sodium 137 mmol/L (137-145); Total Protein 7.3 g/dL (6.3-8.2)
[2024-05-29 13:16] LABS: Troponin I < 0.012 ng/mL (0.01-0.034)
[2024-05-29] MEDS: SODIUM CHLORIDE 0.9% 1,000 ML 1000 ML IV (13:31)
[2024-05-29] MEDS: ONDANSETRON 4 MG/2 ML INJ IV (13:33)
[2024-05-29] MEDS: PANTOPRAZOLE 40 MG VIAL IV (13:33)
[2024-05-29 13:40] LABS: Appearance Urine UA CLEAR; Bilirubin Urine UA NEGATIVE (NEGATIVE); Color Urine UA YELLOW; Glucose Urine UA NEGATIVE (Negative); Ketones Urine UA NEGATIVE (NEGATIVE); Leukocyte Esterase Urine UA 1+ (NEGATIVE); Nitrite Urine UA NEGATIVE (Negative); Occult Blood Urine UA 1+ (Negative); Protein Urine UA NEGATIVE (Negative); Specific Gravity Urine UA <=1.005 (1.000-1.035); Urobilinogen Urine UA 0.2 E.U./dL (0.2)
[2024-05-29 13:46] LABS: Bacteria Urine Occasional (0-1); Culture Indicated Urine Specimen Cultured; RBC Urine 1-5/HPF (0-5/HPF); Squamous Epithelial Cell Urine 1-5 /HPF (0-5/HPF); Urine Volume 10mL (spun); WBC Urine 5-10/HPF (0-5/HPF)
== END 2024-05-29 14:30 | disposition home or self-care (01) ==
PROVIDERS: Emergency Provider Emergency Medicine; PCP Registered Nurse Diabetes Educator
DX: K52.9 Noninfective gastroenteritis and colitis, unspecified (principal); R10.13 Epigastric pain
CPT/HCPCS: 36415; 80053; 81001; 83690; 83735; 84484; 85025; 87086; 93005; 96374; 96375; 99284; J2405; J2470

== ENCOUNTER → 2024-08-12 12:44 | Outpatient (CLI) | payer MEDICARE, SELFPAY ==
--- NOTE | 2024-08-12 12:46 | DI.CT.S_ITS ---
PROCEDURE: CT LUNG LOW DOSE SCREENING INDICATIONS: eval, high risk screen TECHNIQUE: Noncontrast 2.0-2.5 mm thick sections acquired from the pulmonary apices to the posterior costophrenic angles. 7 mm thick axial MIP, and 5 mm coronal and sagittal reformats were then acquired. For radiation dose reduction, the following was used: automated exposure control, adjustment of mA and/or kV according to patient size. COMPARISON: None. FINDINGS: Image quality: Diagnostic. [id number] COPD/centrilobular emphysematous changes predominantly in the upper lobes. Moderate calcifications of the aortic arch and descending aorta. Mild calcifications of the aortic valve and coronary arteries. Mild pleural-parenchymal scarring in the lingula adjacent to the fissure posterior-inferiorly. Mild nonspecific wall thickening of the stomach, some of which may be artifact from partial nondistention although gastritis or other process could be considered. No pneumothorax, no pleural effusion, no pericardial effusion, no lobar consolidation. Lower Neck: No enlarged lymph nodes. Thyroid: No thyroid nodules which require sonographic follow up, per consensus guidelines. Axillae: No enlarged lymph nodes. Chest Wall: Unremarkable. Bones: Mild degenerative changes of the thoracic spine with disc space narrowing, osteophytes without CT evidence of fracture, subluxation or central stenosis. Heart: Heart size is normal. Thoracic Vessels: The aorta and pulmonary arteries demonstrate normal size. Mediastinum and Stephanie: No enlarged lymph nodes. IMPRESSION: No suspicious pulmonary nodules. LUNG-RADS 1; continued annual screening, if eligible. Vascular calcifications, COPD/emphysematous changes, mild wall thickening of the stomach. Dictated by: Nikko Parikh M.D. on 08/13/2024 at 10:05 Approved by: Nikko Parikh M.D. on 08/13/2024 at 10:14
--- NOTE | 2024-08-12 12:46 | DI.RAD.S_ITS ---
PROCEDURE: XR DEXA AXIAL SKELETON INDICATIONS: eval, risk for osteoporosis COMPARISON: None. FINDINGS: Lumbar Spine: Bone mineral density 0.823 g/cm2, T score -2.0. Left Femoral Neck: Bone mineral density 0.819 g/cm2, T score -0.3. Left Hip: Bone mineral density 0.830 g/cm2, T score -0.9. Fracture Risk Calculation (when applicable): 10-year fracture risk of a major osteoporotic fracture 7.2 percent and of a hip fracture 12 percent. (T score greater or equal to -1.0 to: NORMAL) (T score from -1.1 to -2.4: OSTEOPENIA) (T score less than or equal to -2.5: OSTEOPOROSIS) IMPRESSION: Osteopenia with increased 10 year fracture risk. Follow-up guidelines as follows: Osteoporosis: Consider a repeat DEXA and Vertebral Fracture Assessment (VFA) exam in 2 years or sooner if medically necessary, to reassess this patient's status. Osteopenia: Consider a repeat DEXA in 2-3 years to reassess this patient's status, or if there is a new clinical indication. Normal: Consider a repeat DEXA in 5 years or sooner, or if there is a new clinical indication. All treatment decisions require clinical judgment and consideration of individual patient factors, including patient preferences, comorbidities, previous drug use, risk factors not captured in the FRAX model (e.g., frailty, falls, vitamin D deficiency, increased bone turnover, interval significant decline in bone density ) and possible under- or over-estimation of fracture risk by FRAX. In addition, the NOF Guide recommends that FDA-approved medical therapies be considered in postmenopausal women and men age >= 50 years with a: * Hip or vertebral (clinical or morphometric) fracture * T-score of <=-2.5 at the spine or hip * Ten-year fracture probability by FRAX of >= 3% for hip fracture or >=20% for major osteoporotic fracture. Dictated by: Liborio Reddy M.D. on 08/12/2024 at 17:17 Approved by: Liborio Reddy M.D. on 08/12/2024 at 17:18
--- NOTE | 2024-08-12 12:47 | DI.MG.S_ITS ---
MM screening mammo BI: 08/12/2024. BI-RADS: 0 CLINICAL: 69-year old female for bilateral screening mammogram. Tyrer-Cuzick lifetime risk of 10.0%. No personal or first-degree family history of breast cancer. Current reported family history of breast cancer: maternal aunt. The patient had a prior left breast biopsy. PRIOR EXAMS 09/04/2023, 01/18/2022, 03/16/2021, 09/06/2020, 02/27/2020. MAMMOGRAPHY TECHNIQUE: 2D and 3D (tomosynthesis) digital mammographic views obtained, with additional images as needed for full coverage. Current study was also evaluated with a Computer Aided Detection (CAD) system. DENSITY C. The breasts are heterogeneously dense, which may obscure small masses. MAMMOGRAPHY FINDINGS Right: No suspicious mass, asymmetry, microcalcification, or other abnormality seen. No significant change from comparison. Left: Upper Outer at 2:00, Middle depth: Focal asymmetry needing additional imaging evaluation. Left: Benign-appearing post-surgical changes noted on the left. IMPRESSION: Right * No evidence of malignancy. Left (Asymmetry): Upper Outer at 2:00, Middle depth * Incomplete - focal asymmetry needing additional imaging evaluation. RECOMMENDATIONS Left: Upper Outer at 2:00, Middle depth * Further evaluation with diagnostic mammography and diagnostic ultrasound. Ultrasound to be performed only if needed. OVERALL ASSESSMENT CATEGORY BI-RADS-0: Incomplete - Need Additional Imaging Evaluation. ELECTRONICALLY SIGNED: Tammy Mendez M.D. on 08/12/2024 at 05:35:10 PM PT Interpreting Station ID: [id number]
== END ==
PROVIDERS: PCP Registered Nurse Diabetes Educator; Referring Provider Registered Nurse Diabetes Educator; Visit Provider Registered Nurse Diabetes Educator
DX: Z12.31 Encounter for screening mammogram for malignant neoplasm of breast (principal); R92.333 Mammographic heterogeneous density, bilateral breasts; Z80.3 Family history of malignant neoplasm of breast; M85.88 Other specified disorders of bone density and structure, other site; Z78.0 Asymptomatic menopausal state; Z12.2 Encounter for screening for malignant neoplasm of respiratory organs; F17.210 Nicotine dependence, cigarettes, uncomplicated; J44.9 Chronic obstructive pulmonary disease, unspecified; I70.0 Atherosclerosis of aorta; I25.10 Atherosclerotic heart disease of native coronary artery without angina pectoris
CPT/HCPCS: 71271; 77063; 77067; 77080

== ENCOUNTER → 2024-09-16 12:42 | Outpatient (CLI) | payer MEDICARE, MEDICAID, SELFPAY ==
--- NOTE | 2024-09-16 12:48 | DI.MG.S_ITS ---
MM diagnostic mammo unilat LT: 09/16/2024. BI-RADS: 1 CLINICAL: 69-year old female for left diagnostic mammogram that is a recall from screening on 08/12/2024. Tyrer-Cuzick lifetime risk of 10.0%. No personal or first-degree family history of breast cancer. Current reported family history of breast cancer: maternal aunt. The patient had a prior left breast biopsy. PRIOR EXAMS 08/12/2024, 09/04/2023, 01/18/2022, 03/16/2021. MAMMOGRAPHY TECHNIQUE: 2D and 3D (tomosynthesis) digital mammographic views obtained, with additional images as needed for full coverage. Current study was also evaluated with a Computer Aided Detection (CAD) system. DENSITY Left: C. The breasts are heterogeneously dense, which may obscure small masses. MAMMOGRAPHY FINDINGS Left: Upper Outer at 2:00: The questioned focal asymmetry represents superimposition of normal fibroglandular tissue. No suspicious mass, asymmetry, microcalcification, or other abnormality seen. IMPRESSION: Left * No evidence of malignancy. RECOMMENDATIONS Bilateral * Annual screening mammography. COMMENTS: Findings and recommendations were conveyed to the patient during today's evaluation. OVERALL ASSESSMENT CATEGORY BI-RADS-1: Negative. The [employer] recommends annual screening mammography beginning at age 40 for women with average risk of breast cancer. ELECTRONICALLY SIGNED: Alma Cameron M.D. on 09/16/2024 at 02:54:26 PM PT Interpreting Station ID: [id number]
== END ==
PROVIDERS: PCP Registered Nurse Diabetes Educator; Referring Provider Registered Nurse Diabetes Educator; Visit Provider Registered Nurse Diabetes Educator
DX: R92.8 Other abnormal and inconclusive findings on diagnostic imaging of breast (principal); Z80.3 Family history of malignant neoplasm of breast; R92.332 Mammographic heterogeneous density, left breast
CPT/HCPCS: 77065; G0279

== ENCOUNTER → 2024-12-11 13:57 | Outpatient (CLI) | payer MEDICARE, MEDICAID, SELFPAY ==
--- NOTE | 2024-12-11 13:58 | DI.ECHO.S_ITS ---
[place] [facility]+ [facility] : : [address] : [place] : : [id number] : : Phone: [phone] Echocardiogram Report + + :Name: JOSE C MIRELES Study Date: 12/11/2024 Height: 60 in : :[facility] ReadingLocation: Weight: 131 lb : : Gender: Female BSA: 1.6 m2 : :: 1955 Age: 69 yrs BP: 126/73 mmHg: :Reason For Study: CALCIFICATION OF AORTA : :Ordering Physician: AMERICA, : :ALBERTINA Performed By: Owen Monroe : :Referring: ALBERTINA CROSS : + + Interpretation Summary The study quality was technically difficult. The ejection fraction is estimated to be 65-70%. Normal diastolic function. The right ventricle is normal in size and function. No significant valvular abnormalities. Pulmonary artery pressures cannot be estimated because of the lack of a measurable TR jet velocity but the IVC suggests a CVP of around 3 mmHg. Procedure: A two-dimensional transthoracic echocardiogram with color flow and Doppler was performed. The study quality was technically difficult. There is no prior echocardiogram noted for this patient. The patient was in normal sinus rhythm during the exam. Left Ventricle: The left ventricle is normal in size. There is normal left ventricular wall thickness. There is no ventricular septal defect visualized. The ejection fraction is estimated to be 65-70%. There are no focal wall motion abnormalities. Normal diastolic function. Right Ventricle: The right ventricle is normal in size and function. Atria: The left atrial size is normal. Right atrial size is normal. There is no Doppler evidence for an interatrial shunt. The thickening of interatrial septum suggests lipomatous hypertrophy. Mitral Valve: The mitral valve is grossly normal. There is no mitral regurgitation noted. Aortic Valve: The aortic valve is trileaflet. The aortic valve is mildly calcified. The aortic valve opens well. There is no aortic valve stenosis. No aortic regurgitation is present. Tricuspid Valve: The tricuspid valve is not well visualized, but is grossly normal. No tricuspid regurgitation. Pulmonary artery pressures cannot be estimated because of the lack of a measurable TR jet velocity but the IVC suggests a CVP of around 3 mmHg. Pulmonic Valve: The pulmonic valve is not well visualized. There is no pulmonic valvular regurgitation. Great Vessels: The aortic root is normal size. The ascending aorta could not be visualized. The pulmonary artery is not well visualized, but is probably normal size. The IVC is of normal diameter and collapses greater than 50% with a sniff. This suggests a low right atrial pressure of 3 mm Hg. Pericardium/ Pleura There is no pericardial effusion. There is no pleural effusion. MMode/2D Measurements & Calculations LVIDd: 3.8 cm LVOT diam: 1.7 cm LVIDs: 2.6 cm Ao root diam: 2.8 cm FS: 32.5 % EPSS: 0.43 cm IVSd: 0.77 cm LVPWd: 0.73 cm LV posey. diameter/BSA (cm/m^2): 2.5 LV sys. diameter/BSA (cm/m^2): 1.7 LA A2 area: 13.8 cm2 RA long axis: 3.6 cm LA A4 area: 10.7 cm2 RA area: 6.7 cm2 LA length (vol): 4.2 cm RA vol: 10.5 ml LA vol: 30.1 ml RA : 6.8 ml/m2 LA vol index: 19.3 ml/m2 IVC diam: 1.4 cm RVD1 (basal): 2.1 cm RVD2 (mid): 1.7 cm TAPSE: 1.6 cm Doppler Measurements & Calculations Ao V2 max: 122.0 cm/sec LVOT Max Giovanni: 89.0 cm/sec Ao V2 mean: 88.3 cm/sec LV V1 max P.2 mmHg Ao max P.0 mmHg LV V1 VTI: 18.0 cm Ao mean P.4 mmHg JAYLEN(I,D): 1.4 cm2 Ao V2 VTI: 27.9 cm JAYLEN(V,D): 1.6 cm2 sev ratio: 0.65 JAYLEN indexed to BSA (cm^2/m^2): 0.90 MV E max giovanni: 61.5 cm/sec PA V2 max: 97.1 cm/sec MV A max giovanni: 83.7 cm/sec PA V2 mean: 71.4 cm/sec MV E/A: 0.74 PA mean P.2 mmHg Med Peak E' Giovanni: 6.3 cm/sec E/E' med: 9.8 Lat Peak E' Giovanni: 5.7 cm/sec E/E' lat: 10.9 E/e' average: 10.3 MV dec time: 0.23 sec SV(LVOT): 39.2 ml Reading Physician:05:09 PM
== END ==
LOC: ECHO 13:58
PROVIDERS: PCP Registered Nurse Diabetes Educator; Referring Provider Registered Nurse Diabetes Educator; Visit Provider Registered Nurse Diabetes Educator
DX: I35.9 Nonrheumatic aortic valve disorder, unspecified (principal); I70.0 Atherosclerosis of aorta
CPT/HCPCS: 93306